=== PATIENT | male | born 1955 | race African-American/Black ===

== ENCOUNTER 2017-03-04 23:36 | Inpatient (IN) | payer MEDICARE ==
[~2017-03-04] VITALS: Ht 152.4 cm; Wt 122.5 kg
[~2017-03-04 23:36] MED LIST: ACCUPRIL10 MG; ACCUPRIL20TAB PO; AMBIEN 10MG10 MG PO; ATARAX 25MG25 MG/TAB PO; BETAPACE 120MG120 MG PO; BETAPACE 80MG80 MG PO; BETAPACE80 MG PO; CARDURA4 MG PO; CEFTIN500 MG PO; COUMADIN; COUMADIN 77.5 MG/TAB PO; COUMADIN10 MG PO; DIGOXIN0.25 MG PO; FLOMAX0.4 MG PO; FLONASE NASAL S16 GM NS; GABAPENTIN600 MG PO; GLUCOPHAGE500 MG/TAB PO; HUMALIN SC; HUMULIN 70/3100 U/ML SC; HYDRALAZINE HCL25 MG PO; INSULIN 70/3100 U/ML IJ; LANOXIN0.25 MG PO; LANTUS INSULIN; LASIX 20MG TABL20 MG PO; LEXAPRO20 MG PO; LORTAB 10/500 51 TAB; LOVENOX120 MG/0.8 SC; NEB; NEURONTIN600 MG/TAB PO; NEXIUM 40MG40 MG PO; NEXIUM40 MG PO; NORCO 325 MG-7.1 TAB PO; NORVASC 10MG10 MG PO; NOVOLIN 70/30 IN3 ML SC; TOPROL XL100 MG PO; TOPROL XL50 MG PO; TRAMADOL50 MG PO; VICODIN 5/5001 UDTAB PO; XANAX0.25 MG PO; ZOCOR 20MG20 MG PO; amiodipine
[2017-03-05 00:30] LABS: BASO % 0.5 % (0.0-2.0); EOS # 0.2 (0.0-0.7); EOS % 2.6 % (0-4.0); GRAN # 3.9 (1.4-6.5); GRAN % 58.2 % (42.2-75.2); LYMPH % 29.7 % (20.0-51.0); MEAN CELL VOLUME 88 fl (80.0-100.0); MEAN CORPUSCULAR HGB CONC 32 g/dl (33.0-37.0); MEAN PLATELET VOLUME 9.2 fl (7.4-10.4); MONO # 0.6 (0.1-0.6); MONO % 8.4 % (1.7-9.3); PLATELET COUNT 190 K/mm3 (130-400); RED BLOOD COUNT 3.27 M/mm3 (4.20-5.60); WHITE BLOOD COUNT 6.6 K/mm3 (4.8-10.8)
[2017-03-05 00:31] LABS: HEMATOCRIT 28.6 % (42.0-52.0); HEMOGLOBIN 9.1 g/dl (13.5-18.0); MEAN CORPUSCULAR HEMOGLOBIN 28 pg (27.0-31.0)
[2017-03-05 00:34] LABS: INR 3.3 (0.8-3.0)
[2017-03-05 00:43] LABS: ADJUSTED CALCIUM 8.7 mg/dL (8.4-10.2); ALBUMIN 3.8 gm/dL (3.5-5.0); BILIRUBIN,TOTAL 0.5 mg/dL (0.0-1.0); CALCIUM 8.5 mg/dL (8.4-10.2); CREATININE, serum 1.03 mg/dL (0.66-1.25); POTASSIUM 3.5 mmol/L (3.4-5.0); TOTAL PROTEIN 6.6 gm/dL (6.4-8.2)
[2017-03-05 00:55] LABS: TROPONIN-I 0.019 ng/mL (0.000-0.034)
[2017-03-05] MEDS ORDERED: CORDARONE200 MG/TAB PO (06:11)
[2017-03-05] MEDS ORDERED: TOPROL XL 50MG50 MG PO (06:12)
[2017-03-05] MEDS ORDERED: LOPRESSOR 550 MG/TAB PO (06:40)
[2017-03-05] MEDS ORDERED: NEURONTIN600 MG/TAB PO (06:43)
[2017-03-05] MEDS ORDERED: LASIX 40MG TABL40 MG PO (06:45)
[2017-03-05] MEDS ORDERED: GLUCOPHAGE1000 MG PO (06:46)
[2017-03-05] MEDS ORDERED: APRESOLINE50 MG PO (06:47)
[2017-03-05] MEDS ORDERED: COZAAR100 MG PO (06:48)
[2017-03-05] MEDS ORDERED: PERCOCET 325 MG1 TAB PO (06:51)
[2017-03-05] MEDS ORDERED: DESYREL 100MG100 MG PO (06:52)
[2017-03-05] MEDS ORDERED: COUMADIN 1010 MG/TAB PO (06:53)
[2017-03-05] MEDS ORDERED: TYLENOL 8 HR PO (06:54)
[2017-03-05] MEDS ORDERED: COUMADIN 5MG5 MG/TAB PO (06:54)
[2017-03-05] MEDS ORDERED: NITROSTAT0.4 MG/TAB SL (06:55)
[2017-03-05 07:45] VITALS: BP 145/76; PULSE 83; TEMP 97.9
[2017-03-05 07:48] VITALS: BP 145/76; PULSE 80; TEMP 97.9
[2017-03-05 09:25] LABS: BASO % 0.5 % (0.0-2.0); EOS # 0.2 (0.0-0.7); GRAN # 3.5 (1.4-6.5); GRAN % 57.4 % (42.2-75.2); LYMPH # 1.8 (1.2-3.4); LYMPH % 29.7 % (20.0-51.0); MEAN CELL VOLUME 87 fl (80.0-100.0); MEAN CORPUSCULAR HGB CONC 32 g/dl (33.0-37.0); MONO # 0.6 (0.1-0.6); MONO % 9.1 % (1.7-9.3); PLATELET COUNT 220 K/mm3 (130-400); RED BLOOD COUNT 3.73 M/mm3 (4.20-5.60)
[2017-03-05 09:26] LABS: CHOLESTEROL RISK RATIO 3.1; MAGNESIUM 1.6 mg/dL (1.6-2.3)
[2017-03-05 09:30] LABS: HEMATOCRIT 32.6 % (42.0-52.0); HEMOGLOBIN 10.3 g/dl (13.5-18.0); MEAN CORPUSCULAR HEMOGLOBIN 28 pg (27.0-31.0)
[2017-03-05 09:34] LABS: CREATININE, serum 1.09 mg/dL (0.66-1.25); POTASSIUM 3.9 mmol/L (3.4-5.0)
[2017-03-05 12:19] VITALS: BP 144/91; PULSE 79; TEMP 98.7
[2017-03-05 15:44] VITALS: BP 163/87; PULSE 95; TEMP 98.8
[2017-03-05 19:37] VITALS: BP 167/96; PULSE 80; TEMP 98.5
[2017-03-05 23:08] VITALS: BP 127/74; PULSE 79; TEMP 98.6
[2017-03-06 05:07] VITALS: BP 152/65; PULSE 64; TEMP 98.1
[2017-03-06 06:20] LABS: BASO % 0.5 % (0.0-2.0); EOS # 0.2 (0.0-0.7); GRAN # 3.4 (1.4-6.5); LYMPH # 1.4 (1.2-3.4); LYMPH % 25.5 % (20.0-51.0); MEAN CELL VOLUME 88 fl (80.0-100.0); MEAN CORPUSCULAR HGB CONC 31 g/dl (33.0-37.0); MEAN PLATELET VOLUME 9.2 fl (7.4-10.4); MONO # 0.5 (0.1-0.6); MONO % 9.6 % (1.7-9.3); PLATELET COUNT 218 K/mm3 (130-400); RED BLOOD COUNT 3.63 M/mm3 (4.20-5.60); WHITE BLOOD COUNT 5.6 K/mm3 (4.8-10.8)
[2017-03-06 06:25] LABS: MEAN CORPUSCULAR HEMOGLOBIN 28 pg (27.0-31.0)
[2017-03-06 06:38] LABS: ADJUSTED CALCIUM 8.6 mg/dL (8.4-10.2); ALBUMIN 4.1 gm/dL (3.5-5.0); BILIRUBIN,TOTAL 0.7 mg/dL (0.0-1.0); CALCIUM 8.7 mg/dL (8.4-10.2); CREATININE, serum 1.07 mg/dL (0.66-1.25); POTASSIUM 3.9 mmol/L (3.4-5.0); TOTAL PROTEIN 7.3 gm/dL (6.4-8.2)
[2017-03-06 06:41] LABS: INR 3.1 (0.8-3.0); PROTHROMBIN TIME 36.3 SECONDS (9.7-12.8)
[2017-03-06 07:46] VITALS: BP 151/88; PULSE 81; TEMP 98.1
[2017-03-06 11:32] VITALS: BP 148/90; PULSE 78; TEMP 98.1
[2017-03-06 15:41] VITALS: BP 142/80; PULSE 82; TEMP 98.9
[2017-03-06 19:53] VITALS: BP 147/77; PULSE 80; TEMP 98.2
[2017-03-06 23:00] VITALS: BP 147/70; PULSE 90; TEMP 98.4
[2017-03-07 03:58] VITALS: BP 124/67; PULSE 79; TEMP 98.3
[2017-03-07 07:08] LABS: BASO % 0.5 % (0.0-2.0); EOS # 0.2 (0.0-0.7); EOS % 2.9 % (0-4.0); GRAN # 3.3 (1.4-6.5); GRAN % 55.1 % (42.2-75.2); LYMPH # 1.9 (1.2-3.4); MEAN CELL VOLUME 87 fl (80.0-100.0); MEAN CORPUSCULAR HGB CONC 32 g/dl (33.0-37.0); MEAN PLATELET VOLUME 9.7 fl (7.4-10.4); MONO # 0.6 (0.1-0.6); MONO % 9.3 % (1.7-9.3); PLATELET COUNT 252 K/mm3 (130-400); RED BLOOD COUNT 3.78 M/mm3 (4.20-5.60); WHITE BLOOD COUNT 5.9 K/mm3 (4.8-10.8)
[2017-03-07 07:13] LABS: HEMOGLOBIN 10.4 g/dl (13.5-18.0); MEAN CORPUSCULAR HEMOGLOBIN 28 pg (27.0-31.0)
[2017-03-07 07:17] LABS: CALCIUM 9.1 mg/dL (8.4-10.2); CREATININE, serum 1.17 mg/dL (0.66-1.25); MAGNESIUM 1.7 mg/dL (1.6-2.3); PHOSPHOROUS 3.4 mg/dL (2.5-4.5); POTASSIUM 3.8 mmol/L (3.4-5.0)
[2017-03-07 07:19] LABS: PROTHROMBIN TIME 38.4 SECONDS (9.7-12.8)
[2017-03-07 07:20] LABS: INR 3.3 (0.8-3.0)
[2017-03-07 07:54] VITALS: BP 122/76; PULSE 81; TEMP 98.4
[2017-03-07 11:34] VITALS: BP 115/67; PULSE 79; TEMP 98.5
[2017-03-07 15:39] VITALS: BP 148/76; PULSE 79; TEMP 98.2
[2017-03-07 19:20] VITALS: BP 147/88; PULSE 80; TEMP 98.2
[2017-03-07 23:18] VITALS: BP 138/81; PULSE 79; TEMP 98.2
[2017-03-08] VITALS (7 sets, daily range): BP systolic 117–138; BP diastolic 58–85; PULSE 78–82; TEMP 97.6–98
[2017-03-08 09:20] LABS: BASO % 0.6 % (0.0-2.0); EOS # 0.2 (0.0-0.7); EOS % 4.2 % (0-4.0); GRAN # 2.9 (1.4-6.5); GRAN % 56.2 % (42.2-75.2); LYMPH # 1.4 (1.2-3.4); LYMPH % 28.5 % (20.0-51.0); MEAN CELL VOLUME 86 fl (80.0-100.0); MEAN CORPUSCULAR HGB CONC 32 g/dl (33.0-37.0); MEAN PLATELET VOLUME 9.8 fl (7.4-10.4); MONO # 0.5 (0.1-0.6); MONO % 10.3 % (1.7-9.3); PLATELET COUNT 265 K/mm3 (130-400); RED BLOOD COUNT 4.15 M/mm3 (4.20-5.60); WHITE BLOOD COUNT 5.1 K/mm3 (4.8-10.8)
[2017-03-08 09:23] LABS: HEMATOCRIT 35.7 % (42.0-52.0); HEMOGLOBIN 11.4 g/dl (13.5-18.0); MEAN CORPUSCULAR HEMOGLOBIN 27 pg (27.0-31.0)
[2017-03-08 09:32] LABS: CALCIUM 9.3 mg/dL (8.4-10.2); CREATININE, serum 1.16 mg/dL (0.66-1.25); MAGNESIUM 2.1 mg/dL (1.6-2.3); PHOSPHOROUS 2.9 mg/dL (2.5-4.5)
[2017-03-08] MEDS ORDERED: ZITHROMAX 250M250 MG PO (15:16)
[2017-03-08] MEDS ORDERED: TOPROL XL 50MG50 MG PO (15:21)
== END 2017-03-08 16:47 | disposition home or self-care (01) | DRG 314 ==
LOC: COL.ER 23:36 → MEDICAL 03-05 06:02
PROVIDERS: Emergency Medicine; Internal Medicine; Nurse Practitioner Family
DX: I27.20 Pulmonary hypertension, unspecified (principal); J18.9 Pneumonia, unspecified organism; R04.2 Hemoptysis; I48.92 Unspecified atrial flutter; I50.30 Unspecified diastolic (congestive) heart failure; I11.0 Hypertensive heart disease with heart failure; I48.0 Paroxysmal atrial fibrillation; I51.3 Intracardiac thrombosis, not elsewhere classified; E11.40 Type 2 diabetes mellitus with diabetic neuropathy, unspecified; J44.9 Chronic obstructive pulmonary disease, unspecified; E78.5 Hyperlipidemia, unspecified; R07.9 Chest pain, unspecified; G47.30 Sleep apnea, unspecified; Z87.891 Personal history of nicotine dependence; Z95.1 Presence of aortocoronary bypass graft; Z86.73 Personal history of transient ischemic attack (TIA), and cerebral infarction without residual deficits; Z79.84 Long term (current) use of oral hypoglycemic drugs; Z95.2 Presence of prosthetic heart valve; Z79.01 Long term (current) use of anticoagulants
CPT/HCPCS: 99222-AI; 99232-AI; 99239; A9502; J2270; J2405; J2785

== ENCOUNTER 2017-08-13 10:31 | Inpatient (IN) | payer MEDICARE ==
[~2017-08-13] VITALS: Ht 180.3 cm; Wt 128.9 kg
[2017-08-13] VITALS (275 sets, daily range): BP systolic 118–136; BP diastolic 72–93; PULSE 76–93; TEMP 97–97.3; O2SAT 85–100
[~2017-08-13 10:31] MED LIST changes: +APRESOLINE50 MG PO; +CORDARONE200 MG/TAB PO; +COUMADIN 1010 MG/TAB PO; +COUMADIN 5MG5 MG/TAB PO; +COZAAR100 MG PO; +DESYREL 100MG100 MG PO; +GLUCOPHAGE1000 MG PO; +LASIX 40MG TABL40 MG PO; +LOPRESSOR 550 MG/TAB PO; +NITROSTAT0.4 MG/TAB SL; +PERCOCET 325 MG1 TAB PO; +TOPROL XL 50MG50 MG PO; +TYLENOL 8 HR PO; +ZITHROMAX 250M250 MG PO
[2017-08-13 11:01] LABS: BASO % 0.2 % (0.0-2.0); EOS # 0.1 (0.0-0.7); EOS % 0.6 % (0-4.0); GRAN # 5.7 (1.4-6.5); GRAN % 70.4 % (42.2-75.2); HEMOGLOBIN 13.4 g/dl (13.5-18.0); LYMPH # 1.7 (1.2-3.4); LYMPH % 21.3 % (20.0-51.0); MEAN CELL VOLUME 86 fl (80.0-100.0); MEAN CORPUSCULAR HEMOGLOBIN 29 pg (27.0-31.0); MEAN CORPUSCULAR HGB CONC 34 g/dl (33.0-37.0); MEAN PLATELET VOLUME 9.1 fl (7.4-10.4); MONO # 0.6 (0.1-0.6); MONO % 7.1 % (1.7-9.3); PLATELET COUNT 197 K/mm3 (130-400); RED BLOOD COUNT 4.68 M/mm3 (4.20-5.60)
[2017-08-13 11:08] LABS: INR 2.7 (0.8-3.0); PROTHROMBIN TIME 32.5 SECONDS (9.7-12.8)
[2017-08-13 11:10] LABS: PARTIAL THROMBOPLASTIN TIME 45.2 SECONDS (26.0-37.0)
[2017-08-13 11:16] LABS: ALBUMIN 4.5 gm/dL (3.5-5.0); BILIRUBIN,TOTAL 0.7 mg/dL (0.0-1.0); CALCIUM 9.3 mg/dL (8.4-10.2); CREATININE, serum 1.19 mg/dL (0.66-1.25); POTASSIUM 4.4 mmol/L (3.4-5.0); TOTAL PROTEIN 9.1 gm/dL (6.4-8.2)
[2017-08-13 11:22] LABS: TROPONIN-I 0.016 ng/mL (0.000-0.034)
[2017-08-13] MEDS ORDERED: COUMADIN 77.5 MG/TAB PO (13:38)
[2017-08-13] MEDS ORDERED: INSULIN 70/3100 U/ML SQ (13:40)
[2017-08-13] MEDS ORDERED: DUTOPROL 12.5 M1 TE1 PO (14:12)
[2017-08-13] MEDS ORDERED: NORVASC 5MG5 MG/TAB PO (14:14)
[2017-08-13] MEDS ORDERED: CORDARONE200 MG/TAB PO (14:16)
[2017-08-14] MEDS ORDERED: AMBIEN 10MG10 MG (00:16)
[2017-08-14 03:47] VITALS: BP 155/87; PULSE 140
[2017-08-14 07:41] VITALS: BP 147/103; PULSE 81; TEMP 98.2
[2017-08-14] MEDS ORDERED: JARDIANCE10 (08:46)
[2017-08-14] MEDS ORDERED: DESYREL 50MG50 MG PO (08:51)
[2017-08-14 12:50] VITALS: BP 139/68; PULSE 53; TEMP 97.8
[2017-08-14 16:53] VITALS: BP 166/79; PULSE 52; TEMP 98.6
[2017-08-14 19:24] VITALS: BP 159/75; PULSE 52; TEMP 98.3
[2017-08-14 23:22] VITALS: BP 167/67; PULSE 61; TEMP 98
[2017-08-15 03:19] VITALS: BP 120/87; PULSE 64; TEMP 98.6
[2017-08-15 07:20] LABS: BASO % 0.3 % (0.0-2.0); EOS # 0.1 (0.0-0.7); EOS % 1.9 % (0-4.0); GRAN # 4.3 (1.4-6.5); GRAN % 62.8 % (42.2-75.2); HEMATOCRIT 37.2 % (42.0-52.0); HEMOGLOBIN 12.1 g/dl (13.5-18.0); LYMPH # 1.9 (1.2-3.4); LYMPH % 27.1 % (20.0-51.0); MEAN CELL VOLUME 89 fl (80.0-100.0); MEAN CORPUSCULAR HEMOGLOBIN 29 pg (27.0-31.0); MEAN CORPUSCULAR HGB CONC 33 g/dl (33.0-37.0); MEAN PLATELET VOLUME 9.5 fl (7.4-10.4); MONO # 0.5 (0.1-0.6); MONO % 7.6 % (1.7-9.3); PLATELET COUNT 196 K/mm3 (130-400); RED BLOOD COUNT 4.19 M/mm3 (4.20-5.60); REDCELL DISTRIBUTION WIDTH-CV 18.3 % (11.5-14.5)
[2017-08-15 07:26] LABS: INR 2.1 (0.8-3.0); PROTHROMBIN TIME 24.5 SECONDS (9.7-12.8)
[2017-08-15 07:47] LABS: CALCIUM 8.3 mg/dL (8.4-10.2); CREATININE, serum 1.05 mg/dL (0.66-1.25)
[2017-08-15 07:50] VITALS: BP 168/101; PULSE 70; TEMP 98.2
[2017-08-15 07:55] LABS: POTASSIUM 4.4 mmol/L (3.4-5.0)
[2017-08-15] MEDS ORDERED: AMOXICILLIN 8751 TAB PO (08:53)
[2017-08-15] MEDS ORDERED: PERCOCET 325 MG1 TAB PO (08:53)
== END 2017-08-15 11:46 | disposition home or self-care (01) | DRG 309 ==
LOC: COL.ER 10:31 → ICU 12:44 → MEDICAL 20:56
PROVIDERS: Emergency Medicine; Internal Medicine Pulmonary Disease
DX: I48.91 Unspecified atrial fibrillation (principal); I50.22 Chronic systolic (congestive) heart failure; J02.0 Streptococcal pharyngitis; B95.0 Streptococcus, group A, as the cause of diseases classified elsewhere; E11.9 Type 2 diabetes mellitus without complications; I11.0 Hypertensive heart disease with heart failure; Z95.1 Presence of aortocoronary bypass graft; Z79.01 Long term (current) use of anticoagulants; Z95.2 Presence of prosthetic heart valve; Z87.891 Personal history of nicotine dependence
CPT/HCPCS: 99223-AI; 99232-AI; 99238; J0282; J0456; J0696; J1815; J7030; J7050

== ENCOUNTER → 2018-08-12 | Outpatient (CLI) | payer MEDICARE, MEDICAID ==
[~2018-08-12] MED LIST changes: +AMOXICILLIN 8751 TAB PO; +ANTIVERT 25MG25 MG PO; +COUMADIN 6MG6 MG/TAB PO; +DESYREL 50MG50 MG PO; +DUTOPROL 12.5 M1 TE1 PO; +INSULIN 70/3100 U/ML SQ; +JARDIANCE10; +LOVENOX120 MG/0.8 SQ; +NORVASC 5MG5 MG/TAB PO
== END ==
LOC: COL.VAS 08:35
DX: I08.3 Combined rheumatic disorders of mitral, aortic and tricuspid valves (principal); I27.20 Pulmonary hypertension, unspecified; Z95.4 Presence of other heart-valve replacement

== ENCOUNTER 2018-10-22 10:05 | Inpatient (IN) | payer MEDICARE, MEDICAID ==
[~2018-10-22] VITALS: Ht 180.3 cm; Wt 105.7 kg
[2018-10-22 11:00] LABS: COLLECTION METHOD CLEAN CATCH
[2018-10-22 11:18] LABS: MUCOUS Present /lpf; PH 5 (5-8); SQUAMOUS EPITHELIAL None Seen /hpf; URINE APPEARANCE Hazy; URINE BACTERIA None Seen /hpf; URINE BILIRUBIN Negative (NEGATIVE); URINE BLOOD Negative (NEGATIVE); URINE COLOR Yellow; URINE GLUCOSE 3+ (NEGATIVE); URINE KETONE 1+ (NEGATIVE); URINE LEUKOCYTE ESTERASE Negative (NEGATIVE); URINE NITRATE Negative (NEGATIVE); URINE PROTEIN(semi-quant) Negative (NEGATIVE); URINE RBC 0-2 /hpf; URINE UROBILINOGEN Negative (NEGATIVE)
[2018-10-22 11:47] LABS: BASO % 0.4 % (0.0-2.0); EOS # 0.1 (0.0-0.7); EOS % 1.2 % (0-4.0); GRAN # 2.5 (1.4-6.5); GRAN % 52.7 % (42.2-75.2); HEMATOCRIT 40.9 % (42.0-52.0); HEMOGLOBIN 13.9 g/dl (13.5-18.0); LYMPH # 1.7 (1.2-3.4); LYMPH % 34.5 % (20.0-51.0); MEAN CELL VOLUME 82 fl (80.0-100.0); MEAN CORPUSCULAR HEMOGLOBIN 28 pg (27.0-31.0); MEAN CORPUSCULAR HGB CONC 34 g/dl (33.0-37.0); MONO # 0.5 (0.1-0.6); PLATELET COUNT 174 K/mm3 (130-400); RED BLOOD COUNT 5.02 M/mm3 (4.20-5.60); REDCELL DISTRIBUTION WIDTH-CV 21.3 % (11.5-14.5)
[2018-10-22 11:49] LABS: INR 2.6 (0.8-3.0); PROTHROMBIN TIME 31.5 SECONDS (9.7-12.8)
[2018-10-22 11:55] LABS: ALBUMIN 4.2 gm/dL (3.5-5.0); BILIRUBIN,TOTAL 0.7 mg/dL (0.0-1.0); C-REACTIVE PROTEIN 0.7 mg/dL (0.0-0.9); CALCIUM 9.4 mg/dL (8.4-10.2); CREATININE, serum 1.47 (0.66-1.25); POTASSIUM 3.1 mmol/L (3.4-5.0); TOTAL PROTEIN 8.1 gm/dL (6.4-8.2)
[2018-10-22 12:07] LABS: TROPONIN-I 0.04 ng/mL (0.000-0.035)
[2018-10-22 15:59] LABS: MAGNESIUM 2.2 mg/dL (1.6-2.3)
[2018-10-22 16:19] LABS: TROPONIN-I 3 HR POST INITIAL 0.046 ng/mL (0.000-0.034)
[2018-10-22 16:24] VITALS: BP 152/86; PULSE 71; TEMP 97.8
[2018-10-22] MEDS ORDERED: PRILOSEC 20MG20 MG PO (16:34)
[2018-10-22] MEDS ORDERED: FLONASE SENSIM9.9 ML NS (16:35)
[2018-10-22] MEDS ORDERED: NIFEREX TABLET1 EACH PO (16:35)
[2018-10-22] MEDS ORDERED: NITRO-DUR0.2 MG/PAT TD (16:37)
[2018-10-22] MEDS ORDERED: TOPROL XL100 MG PO (16:38)
[2018-10-22] MEDS ORDERED: CELEXA 20MG20 MG/TAB PO (16:39)
[2018-10-22] MEDS ORDERED: JARDIANCE10 PO (16:40)
[2018-10-22] MEDS ORDERED: MICARDIS80 MG PO (16:41)
--- NOTE | 2018-10-22 17:00 | NUR ---
Pt arrived to floor at this time via w/c with ER staff. Will orient to room.
--- NOTE | 2018-10-22 18:18 | NUR ---
Pt resting in bed, down for radiology Xray. PRN pain meds provided for ABD pain of 5/10. Pt states he has no support, no friends, no family, has lost most of his loved ones and feels alone. Will pass onto nightshift for social work to meet with him tomorrow. Will give bedside shift report to nightshift nurse who will resume care.
--- NOTE | 2018-10-22 19:18 | NUR ---
Report received from Mary YING. Pt resting in bed. PRN pain meds given by Mary.
--- NOTE | 2018-10-22 19:30 | NUR ---
Radiology at bedside to complete abdominal ultrasound.
[2018-10-22 20:36] VITALS: BP 179/88; PULSE 70; TEMP 98
--- NOTE | 2018-10-22 21:00 | NUR ---
Donna DHALIWAL alerted that patients blood pressure is elevated. Orders received for PRN Hydralazine.
--- NOTE | 2018-10-22 21:05 | NUR ---
Pt resting in bed. No acute distress noted. Pt c/o cramping pain 8/10 in RUQ. Pain radiates to epigastric area. Pt also c/o headache that he relates to elevated blood pressure. R side abdomen tender. BS+. Respirations even and unlabored. Lungs clear. PRN and scheduled meds administered. IV fluids and K+ replacement running concurrently to RAC IV site. Will continue to monitor.
[2018-10-22 22:30] VITALS: BP 154/86; PULSE 72
--- NOTE | 2018-10-22 22:30 | NUR ---
Pts blood pressure responsive to PRN Hydralzine. No needs noted.
--- NOTE | 2018-10-22 23:20 | NUR ---
Pt resting in bed. CPAP in place. Pt c/o L chest pain. PRN Nitroglycerin tablet x1 given. Will continue to monitor.
[2018-10-22 23:26] VITALS: BP 155/74; PULSE 69; TEMP 97.9
[2018-10-22 23:28] VITALS: BP 155/74
--- NOTE | 2018-10-22 23:45 | NUR ---
L sided chest pain has resolved with Nitro SL x1, but patient states RUQ is painful 7/10-cramping. PRN pain medications administered. Pt has not voided since admission at 1425. He also reported no output in the ER since 1000. Pt bladder scanned at 230 mL. Chrissy DHALIWAL alerted. No orders.
[2018-10-23] VITALS (7 sets, daily range): BP systolic 146–179; BP diastolic 81–101; PULSE 78–91; TEMP 97.9–98.4
--- NOTE | 2018-10-23 06:11 | NUR ---
Pt is sleeping this AM after being up throughout the shift. Pt has not c/o pain since last dose of PRN pain medication at at 2330. Potassium replacement completed and pt IVF running to RAC IV. Recheck this AM.
[2018-10-23 07:20] LABS: BASO % 0.8 % (0.0-2.0); EOS # 0.2 (0.0-0.7); GRAN # 2.7 (1.4-6.5); GRAN % 54.9 % (42.2-75.2); HEMATOCRIT 41.9 % (42.0-52.0); HEMOGLOBIN 13.7 g/dl (13.5-18.0); LYMPH # 1.5 (1.2-3.4); MEAN CELL VOLUME 84 fl (80.0-100.0); MEAN CORPUSCULAR HEMOGLOBIN 28 pg (27.0-31.0); MEAN CORPUSCULAR HGB CONC 33 g/dl (33.0-37.0); MEAN PLATELET VOLUME 9.2 fl (7.4-10.4); MONO # 0.6 (0.1-0.6); MONO % 11.1 % (1.7-9.3); PLATELET COUNT 192 K/mm3 (130-400); RED BLOOD COUNT 4.97 M/mm3 (4.20-5.60); REDCELL DISTRIBUTION WIDTH-CV 21.4 % (11.5-14.5)
[2018-10-23 07:44] LABS: ALBUMIN 4.2 gm/dL (3.5-5.0); BILIRUBIN,TOTAL 0.6 mg/dL (0.0-1.0); CALCIUM 9.2 mg/dL (8.4-10.2); CHOLESTEROL RISK RATIO 4.4; CREATININE, serum 1.23 (0.66-1.25); POTASSIUM 4.4 mmol/L (3.4-5.0); TOTAL PROTEIN 8.2 gm/dL (6.4-8.2)
[2018-10-23 08:09] LABS: TROPONIN-I 0.037 ng/mL (0.000-0.035)
--- NOTE | 2018-10-23 10:52 | NUR ---
Patient lives at home alone in [place], [place] and plans to return home upon discharge. Patient receives support as needed from his friend, Mellissa Ferreira [phone], or his son, Kiran Rodney. Patient uses a walker and/or cane for mobility assistance as needed, his primary care physician is Dr. Boo Hinojosa ([place]), his pharmacy is [facility] ([place]), and he does not have advance directives for healthcare completed at this time. No further needs and social worker masters will follow as needed.
--- NOTE | 2018-10-23 20:55 | NUR ---
Shift assessment complete. Pt sitting in bed, awake, a&o, cooperative c cares. Pt continued c/o nausea et abd pain; PRN pain physician general internal medicine c hs meds per pt req. Pt denies other c/o. IV patent. Pt denies further needs. Report given to Esperanza YING to assume pt cares.
[2018-10-24] VITALS (8 sets, daily range): BP systolic 127–200; BP diastolic 64–106; PULSE 80–96; TEMP 98.1–98.5
[2018-10-24 07:25] LABS: HEMOGLOBIN 13.4 g/dl (13.5-18.0); MEAN CELL VOLUME 83 fl (80.0-100.0); MEAN CORPUSCULAR HEMOGLOBIN 28 pg (27.0-31.0); MEAN CORPUSCULAR HGB CONC 34 g/dl (33.0-37.0); MEAN PLATELET VOLUME 8.7 fl (7.4-10.4); PLATELET COUNT 168 K/mm3 (130-400); RED BLOOD COUNT 4.83 M/mm3 (4.20-5.60); REDCELL DISTRIBUTION WIDTH-CV 21.2 % (11.5-14.5)
[2018-10-24 07:41] LABS: INR 4.9 (0.8-3.0)
[2018-10-24 07:58] LABS: CALCIUM 9.1 mg/dL (8.4-10.2); CREATININE, serum 0.88 (0.66-1.25); POTASSIUM 3.7 mmol/L (3.4-5.0)
--- NOTE | 2018-10-24 08:00 | NUR ---
PATIENT IS A&O. PATIENT UPSET ABOUT BEING A FALL RISK AND DOESN'T LIKE CALLING FOR HELP. NURSING EDUCATED ABOUT SAFETY. PATIENT ALSO HAD SEVERAL QUESTIONS ABOUT HOME MEDS SUCH WHY HIS NEURONTIN DOSE WAS DECREASED, LIKELY DUE TO HIS BUN & CREAT LABS. PATIENT ALSO WANTING HIS NASAL SPRAY RE-ORDERED. HOSPITALIST NOTIFIED. PATIENT DENIES CHEST PAIN OR SOB. PATIENT DOES GET FATIGUED WITH ACTIVITY. PT ORDERED. PATIENT SCHEDULED FOR A LEXISCAN THIS AM. NPO. TELE INPLACE. AM MEDS GIVEN. TOPROLOL HELD FOR STEPHANIE. HEAD TO TOE ASSESSMENT COMPLETE. PATIENT RESTING UP IN BED WITH CALL LIGHT IN REACH.
[2018-10-24 08:10] LABS: BASOPHIL 1 % (0-2); EOSINOPHIL 3 % (0-4); LYMPHOCYTE 41 % (20.0-51.0); NEUTROPHILS 49 % (42.0-75.2); PLATELET ESTIMATE NORMAL (NORMAL)
--- NOTE | 2018-10-24 13:15 | NUR ---
PT AT BEDSIDE TO WORK WITH PATIENT. PATIENT FOUND PUTTING ON HIS STREET CLOTHES AND HAD TAKEN OFF HIS IV FLUIDS. PT ENCOURAGED PATIENT TO PUT BACK ON HIS GOWN, PATIENT REFUSED.
--- NOTE | 2018-10-24 13:30 | NUR ---
PATIENT HIGH FALL RISK AND REFUSING TO PUT ON [facility] GOWN. STAFF EXPLAINED HOSPITAL POLICY REGUARDING SAFETY. PATIENT ALSO REFUSING TO HAVE CHAIR OR BED ALARM. PATIENT WONT CALL USING CALL LIGHT FOR ACTIVITY AFTER BEING EDUCATED AND ASKED TO CALL FOR HELP. PATIENT'S ROOM RIGHT ACCROSS FROM THE NURSES STATION. PATIENT SEEN AMBULATING IN ROOM WITHOUT CALLING FOR HELP. PREVIOUS SHIFT REPORTS PATIENT FELL TWICE YESTERDAY DUE TO NON-COMPLIENCE. PATIENT HAS A LONG LIST OF ISSUES HE COMPLAINS ABOUT FROM HIS FALL RISKS STATUS TO HIS DIET. PATIENT VERY HARD TO PLEASE. NURSING STAFF SPENT A LOT OF TIME EDUCATING PATIENT AND ANSWERING QUESTIONS. PATIENT REMAINS NON-COMPLIENT.
--- NOTE | 2018-10-24 13:40 | NUR ---
PATIENT SEEN OUT IN HALLWAY BLEEDING FROM HIS RIGHT HAND. PATIENT TOOK OF HIS FLUIDS AND PULLED OUT HIS RIGHT HAND IV. PATIENT BLEEDING ALL OVER HIMSELF AND FLOOR. PATIENT ALSO REMOVED HIS HEART MONITOR AND WAS STOPPED IN HALLWAY BY NURSING STAFF. CALLED HOSPITALIST AND ANALOG IC DESIGN ENGINEER. Anuj
--- NOTE | 2018-10-24 13:45 | NUR ---
AT BEDSIDE EXPLAINING THE IMPORTANCE OF HOSPITAL SAFETY WELL HIS NEED FOR CONTINUED MEDICAL MANAGEMENT. THE HOSPITALIST CARE TEAM ALL EXPLAINED IN GREAT DETAIL AND ANSWERED ALL QUESTIONS/CONCERNS. PATIENT WAS OPEN ABOUT NOT FOLLOWING HOSPITAL POLICY AND STATES WE ARE JUST "AGGRAVATING HIM". PATIENT HAS CHOOSENT NOT TO STAY. PATIENT UNDERSTANDS HIS RISKS AND CLEARLY STATES HE DOESN'T CARE. HOSPITALIST ENCOURAGED HIM TO FOLLOW UP WITH HIS PCP AND GET HIS INR CHECKED. PATIENT STATED "I'M NOT GOING TO DO THAT EITHER".
--- NOTE | 2018-10-24 14:00 | NUR ---
PATIENT QUICKLY SIGNED AMA PAPER AND IS WALKING OUT AMA WITH WALKER AND PERSONAL BELONGINGS. PATIENT WOULD NOT WAIT FOR STAFF TO GET A WHEELCHAIR. SOFTWARE TEST ENGINEER WALKED OUT WITH PATIENT.
--- NOTE | 2018-10-24 14:09 | NUR ---
The patient left Against Medical Advice. No additional needs at this time.
== END 2018-10-24 14:00 | disposition left against medical advice (07) | DRG 438 ==
LOC: COL.ER 10:05 → MEDICAL 12:46
PROVIDERS: Emergency Medicine; Physician Assistant; ADMIT Hospitalist
DX: K85.90 Acute pancreatitis without necrosis or infection, unspecified (principal); I21.A1 Myocardial infarction type 2; E87.2 Acidosis; I50.32 Chronic diastolic (congestive) heart failure; I69.351 Hemiplegia and hemiparesis following cerebral infarction affecting right dominant side; K86.89 Other specified diseases of pancreas; R55 Syncope and collapse; E87.6 Hypokalemia; Z79.84 Long term (current) use of oral hypoglycemic drugs; E11.40 Type 2 diabetes mellitus with diabetic neuropathy, unspecified; Z79.4 Long term (current) use of insulin; Z79.01 Long term (current) use of anticoagulants; Z95.2 Presence of prosthetic heart valve; E78.5 Hyperlipidemia, unspecified; I11.0 Hypertensive heart disease with heart failure; I48.0 Paroxysmal atrial fibrillation; K21.9 Gastro-esophageal reflux disease without esophagitis; J44.9 Chronic obstructive pulmonary disease, unspecified; G47.33 Obstructive sleep apnea (adult) (pediatric); G47.00 Insomnia, unspecified; I35.1 Nonrheumatic aortic (valve) insufficiency; I36.1 Nonrheumatic tricuspid (valve) insufficiency; I25.10 Atherosclerotic heart disease of native coronary artery without angina pectoris; Z95.1 Presence of aortocoronary bypass graft; Z86.711 Personal history of pulmonary embolism; R59.0 Localized enlarged lymph nodes; F07.81 Postconcussional syndrome
CPT/HCPCS: OP; 99223-AI; 99231-AI; 99233-AI; 99239; A9500; J0360; J1170; J2270; J2765; J2785; J3480; J7030; Q9967

== ENCOUNTER 2018-10-26 22:35 | Emergency (ER) | payer MEDICARE, MEDICAID ==
[2006-05-04 12:29] VITALS: BP 123/72
[~2018-10-26] VITALS: Ht 180.3 cm; Wt 106.4 kg
[~2018-10-26 22:35] MED LIST changes: +CELEXA 20MG20 MG/TAB PO; +FLONASE SENSIM9.9 ML NS; +JARDIANCE10 PO; +MICARDIS80 MG PO; +NIFEREX TABLET1 EACH PO; +NITRO-DUR0.2 MG/PAT TD; +PRILOSEC 20MG20 MG PO
[2018-10-26 22:42] VITALS: TEMP 98.9
[2018-10-27 00:47] LABS: BASO % 0.5 % (0.0-2.0); EOS # 0.1 (0.0-0.7); GRAN # 3.8 (1.4-6.5); GRAN % 64.6 % (42.2-75.2); HEMATOCRIT 40.7 % (42.0-52.0); HEMOGLOBIN 13.6 g/dl (13.5-18.0); LYMPH # 1.5 (1.2-3.4); LYMPH % 25.9 % (20.0-51.0); MEAN CELL VOLUME 83 fl (80.0-100.0); MEAN CORPUSCULAR HEMOGLOBIN 28 pg (27.0-31.0); MEAN CORPUSCULAR HGB CONC 33 g/dl (33.0-37.0); MONO # 0.4 (0.1-0.6); MONO % 7.5 % (1.7-9.3); PLATELET COUNT 170 K/mm3 (130-400); RED BLOOD COUNT 4.93 M/mm3 (4.20-5.60); REDCELL DISTRIBUTION WIDTH-CV 20.7 % (11.5-14.5)
[2018-10-27 01:00] LABS: ALBUMIN 4.3 gm/dL (3.5-5.0); BILIRUBIN,TOTAL 1.2 mg/dL (0.0-1.0); CALCIUM 9.8 mg/dL (8.4-10.2); CREATININE, serum 1.53 (0.66-1.25); POTASSIUM 3.6 mmol/L (3.4-5.0); TOTAL PROTEIN 8.4 gm/dL (6.4-8.2)
[2018-10-27 09:30] VITALS: BP 125/81; PULSE 83
== END 2018-10-27 09:35 | disposition short-term general hospital (02) ==
LOC: COL.ER 22:35
PROVIDERS: Emergency Medicine
DX: K85.90 Acute pancreatitis without necrosis or infection, unspecified (principal); K86.9 Disease of pancreas, unspecified; I10 Essential (primary) hypertension; E11.42 Type 2 diabetes mellitus with diabetic polyneuropathy; I48.91 Unspecified atrial fibrillation; I25.10 Atherosclerotic heart disease of native coronary artery without angina pectoris; K21.9 Gastro-esophageal reflux disease without esophagitis; E78.5 Hyperlipidemia, unspecified; J44.9 Chronic obstructive pulmonary disease, unspecified; Z86.73 Personal history of transient ischemic attack (TIA), and cerebral infarction without residual deficits; Z79.4 Long term (current) use of insulin; Z79.84 Long term (current) use of oral hypoglycemic drugs; Z79.01 Long term (current) use of anticoagulants
CPT/HCPCS: J1170; J2405; J7030

== ENCOUNTER 2018-11-13 12:06 | Emergency (ER) | payer MEDICARE, MEDICAID ==
[2006-05-04 12:29] VITALS: BP 123/72
[~2018-11-13] VITALS: Ht 180.3 cm; Wt 104.5 kg
[~2018-11-13 12:06] MED LIST changes: -JARDIANCE10
[2018-11-13 12:13] VITALS: TEMP 97.3
[2018-11-13] MEDS ORDERED: HUMULIN 70/3100 U/M1 SQ (12:55)
[2018-11-13] MEDS ORDERED: ZOFRAN 4MG T4 MG/TAB PO (13:00)
[2018-11-13] MEDS ORDERED: ZOCOR 20MG20 MG PO (13:01)
[2018-11-13] MEDS ORDERED: MIRALAX PA17 GM/Dose PO (13:01)
[2018-11-13] MEDS ORDERED: COUMADIN 77.5 MG/TAB PO (13:03)
[2018-11-13 13:21] LABS: BASO % 0.4 % (0.0-2.0); EOS # 0.1 (0.0-0.7); EOS % 1.6 % (0-4.0); GRAN # 2.6 (1.4-6.5); GRAN % 51.2 % (42.2-75.2); LYMPH # 1.8 (1.2-3.4); LYMPH % 34.9 % (20.0-51.0); MEAN CELL VOLUME 85 fl (80.0-100.0); MEAN CORPUSCULAR HEMOGLOBIN 28 pg (27.0-31.0); MEAN CORPUSCULAR HGB CONC 33 g/dl (33.0-37.0); MEAN PLATELET VOLUME 9.3 fl (7.4-10.4); MONO # 0.6 (0.1-0.6); MONO % 11.5 % (1.7-9.3); PLATELET COUNT 226 K/mm3 (130-400); RED BLOOD COUNT 4.26 M/mm3 (4.20-5.60); REDCELL DISTRIBUTION WIDTH-CV 17.5 % (11.5-14.5)
[2018-11-13 13:24] LABS: ALANINE AMINOTRANSFERASE < 6 U/L (21-72); ALBUMIN 4.2 gm/dL (3.5-5.0); ALKALINE PHOSPHATASE 89 U/L (50-136); AMYLASE 94 U/L (30-110); ANION GAP 15 mmol/L (7-16); AST,SGOT 36 U/L (15-37); BILIRUBIN,TOTAL 0.7 mg/dL (0.0-1.0); BLOOD UREA NITROGEN 20 mg/dL (9-20); CALCIUM 9.7 mg/dL (8.4-10.2); CARBON DIOXIDE 21 mmol/L (22-30); CHLORIDE 103 mmol/L (98-107); CREATININE, serum 1.47 (0.66-1.25); GLUCOSE 160 mg/dL (74-106); LIPASE 216 U/L (23-300); POTASSIUM 3.9 mmol/L (3.4-5.0); SODIUM 139 mmol/L (137-145)
[2018-11-13 14:07] LABS: COLLECTION METHOD CLEAN CATCH
[2018-11-13 14:13] LABS: MUCOUS Present /lpf; PH 5 (5-8); SQUAMOUS EPITHELIAL None Seen /hpf; URINE APPEARANCE Clear; URINE BACTERIA None Seen /hpf; URINE BILIRUBIN Negative (NEGATIVE); URINE BLOOD 3+ (NEGATIVE); URINE COLOR Yellow; URINE GLUCOSE 3+ (NEGATIVE); URINE KETONE Negative (NEGATIVE); URINE LEUKOCYTE ESTERASE Negative (NEGATIVE); URINE NITRATE Negative (NEGATIVE); URINE PROTEIN(semi-quant) Negative (NEGATIVE); URINE RBC 20-50 /hpf; URINE UROBILINOGEN Negative (NEGATIVE)
[2018-11-13 16:57] VITALS: BP 115/74; PULSE 70
== END 2018-11-13 16:57 | disposition home or self-care (01) ==
LOC: COL.ER 12:06
PROVIDERS: Nurse Practitioner Primary Care
DX: K86.9 Disease of pancreas, unspecified (principal); E11.9 Type 2 diabetes mellitus without complications; I10 Essential (primary) hypertension; J44.9 Chronic obstructive pulmonary disease, unspecified; K21.9 Gastro-esophageal reflux disease without esophagitis; E78.5 Hyperlipidemia, unspecified; I48.91 Unspecified atrial fibrillation; Z95.1 Presence of aortocoronary bypass graft; Z87.891 Personal history of nicotine dependence; Z90.89 Acquired absence of other organs; Z86.711 Personal history of pulmonary embolism; Z79.84 Long term (current) use of oral hypoglycemic drugs; Z79.51 Long term (current) use of inhaled steroids
CPT/HCPCS: J1170; J2270; J2405; J7030

== ENCOUNTER 2018-11-21 09:40 | Observation (INO) | payer MEDICARE, MEDICAID ==
[~2018-11-21] VITALS: Ht 180.3 cm; Wt 100.8 kg
[~2018-11-21 09:40] MED LIST changes: +HUMULIN 70/3100 U/M1 SQ; +MIRALAX PA17 GM/Dose PO; +ZOFRAN 4MG T4 MG/TAB PO
[2018-11-21 11:07] LABS: COLLECTION METHOD CLEAN CATCH
[2018-11-21 11:17] LABS: BASO % 0.3 % (0.0-2.0); GRAN % 70.8 % (42.2-75.2); HEMATOCRIT 41.2 % (42.0-52.0); HEMOGLOBIN 14.2 g/dl (13.5-18.0); LYMPH # 1.5 (1.2-3.4); LYMPH % 21.5 % (20.0-51.0); MEAN CELL VOLUME 84 fl (80.0-100.0); MEAN CORPUSCULAR HEMOGLOBIN 29 pg (27.0-31.0); MEAN CORPUSCULAR HGB CONC 35 g/dl (33.0-37.0); MEAN PLATELET VOLUME 9.2 fl (7.4-10.4); MONO # 0.5 (0.1-0.6); MONO % 7.1 % (1.7-9.3); PLATELET COUNT 257 K/mm3 (130-400); RED BLOOD COUNT 4.93 M/mm3 (4.20-5.60); REDCELL DISTRIBUTION WIDTH-CV 16.2 % (11.5-14.5)
[2018-11-21 11:24] LABS: INR 4.9 (0.8-3.0)
[2018-11-21 11:26] LABS: PROTHROMBIN TIME 60.7 SECONDS (9.7-12.8)
[2018-11-21 11:27] LABS: PARTIAL THROMBOPLASTIN TIME 45.3 SECONDS (26.0-37.0)
[2018-11-21 11:29] LABS: ALANINE AMINOTRANSFERASE < 6 U/L (21-72); ALBUMIN 4.7 gm/dL (3.5-5.0); ALKALINE PHOSPHATASE 95 U/L (50-136); ANION GAP 18 mmol/L (7-16); AST,SGOT 30 U/L (15-37); BLOOD UREA NITROGEN 17 mg/dL (9-20); CALCIUM 10.2 mg/dL (8.4-10.2); CARBON DIOXIDE 21 mmol/L (22-30); CHLORIDE 101 mmol/L (98-107); CREATININE, serum 1.17 (0.66-1.25); GLUCOSE 137 mg/dL (74-106); LIPASE 162 U/L (23-300); POTASSIUM 3.9 mmol/L (3.4-5.0); SODIUM 140 mmol/L (137-145); TOTAL PROTEIN 9.1 gm/dL (6.4-8.2)
[2018-11-21 11:33] LABS: PH 6 (5-8); SQUAMOUS EPITHELIAL 0-2 /hpf; URINE APPEARANCE Clear; URINE BACTERIA None Seen /hpf; URINE BILIRUBIN Negative (NEGATIVE); URINE BLOOD 3+ (NEGATIVE); URINE COLOR Yellow; URINE GLUCOSE 3+ (NEGATIVE); URINE KETONE 2+ (NEGATIVE); URINE LEUKOCYTE ESTERASE Negative (NEGATIVE); URINE NITRATE Negative (NEGATIVE); URINE PROTEIN(semi-quant) 1+ (NEGATIVE); URINE RBC 20-50 /hpf; URINE UROBILINOGEN Negative (NEGATIVE)
[2018-11-21 11:40] LABS: TROPONIN-I 0.036 ng/mL (0.000-0.035)
[2018-11-21] MEDS ORDERED: NITRO-DUR0.2 MG/PAT TD (13:44)
[2018-11-21 16:16] VITALS: BP 131/60; PULSE 71; TEMP 98.1
--- NOTE | 2018-11-21 19:19 | NUR ---
Pt admission completed. Pt appears to be uninterested in cares, biggest concern is "pain and what he is getting for it". Pt c/o upper abdominal pain Lt and Rt. When asked questions on admission assessment, pt lingered with responses and some answers didn't match what was in computer. This nurse unsure of accuracy of responses to questions. Did not complete med rec, TEMO kam fax of meds. Hospitalist has already met with patient. Pt just lays in bed with covers over head. LH IV w/ NS. this nurse administered PRN percocet per JUN. Pt on room air and denies SOB, dizziness, chest pain, vomiting. States he has some nausea, denies needing anything for it. No other needs at this time.
[2018-11-21] MEDS ORDERED: COUMADIN 5MG5 MG/TAB PO (19:28)
[2018-11-21] MEDS ORDERED: NOVOLIN 70/30 710 ML SQ (19:34)
[2018-11-21] MEDS ORDERED: NIFEREX TABLET1 EACH PO (19:41)
[2018-11-21] MEDS ORDERED: PRILOSEC 20MG20 MG PO (19:43)
[2018-11-21] MEDS ORDERED: REGLAN 5MG T5 MG/TAB PO (19:45)
--- NOTE | 2018-11-21 19:45 | NUR ---
Patient assessed at this time. Alert and oriented. Does not alway make needs known. Bed alarm is on. Peripheral IV to right hand flushed. Site is without redness, warmth, swelling, and pain. Complained of level 8 pain to abdomen. Given PRN Morphine at this time. Also complained of nausea. Given PRN Zofran. Denies SOB, dyspnea, and cough. LS CTA. Respirations even and unlabored. HRR. Capillary refill less than 3 seconds. Non-tenting skin turgor. BSAx4. No edema noted. Voices no questions, needs, or concerns at this time. In bed watching TV at this time. Call light is within nithin.
[2018-11-21 20:17] VITALS: BP 131/79; PULSE 70; TEMP 98
[2018-11-21 23:21] VITALS: BP 120/66; PULSE 69; TEMP 97.9
--- NOTE | 2018-11-22 01:53 | NUR ---
Patient complained of pain, and was given PRN Percocet. Shortly afterwards, patient complained of nausea, and was given PRN Zofran around 0115. Patient is resting in bed with eyes closed at this time. Has voiced no other questions, needs, or concerns at this time. Call light is within reach.
[2018-11-22] MEDS ORDERED: CELEXA 20MG20 MG/TAB PO (03:29)
[2018-11-22 04:19] VITALS: BP 132/75; PULSE 70; TEMP 98
--- NOTE | 2018-11-22 06:19 | NUR ---
Patient complained of level 9 pain. Given PRN Morphine. Ambulated with cane and one assist to and from bathroom. Voices no other questions, needs, or concerns at this time. Call light is within reach.
[2018-11-22 07:09] VITALS: BP 154/85; BP 165/81; PULSE 67; TEMP 98.1
[2018-11-22 07:49] LABS: BASO % 0.6 % (0.0-2.0); EOS # 0.1 (0.0-0.7); EOS % 1.7 % (0-4.0); GRAN % 57.4 % (42.2-75.2); HEMATOCRIT 39.5 % (42.0-52.0); HEMOGLOBIN 13.1 g/dl (13.5-18.0); LYMPH # 1.6 (1.2-3.4); LYMPH % 30.6 % (20.0-51.0); MEAN CELL VOLUME 86 fl (80.0-100.0); MEAN CORPUSCULAR HEMOGLOBIN 29 pg (27.0-31.0); MEAN CORPUSCULAR HGB CONC 33 g/dl (33.0-37.0); MEAN PLATELET VOLUME 9.4 fl (7.4-10.4); MONO # 0.5 (0.1-0.6); MONO % 9.5 % (1.7-9.3); PLATELET COUNT 206 K/mm3 (130-400); RED BLOOD COUNT 4.57 M/mm3 (4.20-5.60); REDCELL DISTRIBUTION WIDTH-CV 16.7 % (11.5-14.5)
[2018-11-22 08:01] LABS: BILIRUBIN,TOTAL 0.6 mg/dL (0.0-1.0); CALCIUM 9.3 mg/dL (8.4-10.2); CREATININE, serum 1.15 (0.66-1.25); TOTAL PROTEIN 7.8 gm/dL (6.4-8.2)
[2018-11-22] MEDS ORDERED: PERCOCET 325 MG1 TAB PO (08:55)
--- NOTE | 2018-11-22 09:16 | NUR ---
MICHAEL met with the patient to discuss a discharge plan. The pt lives alone in [place]. Patient does have a daughter in but reports she is not a source of support for the pt. The pt has a walker he uses when he is dizzy and a cane that he keeps in his car. The pt's PCP is Dr. Marie and reports he also has several other providers, including a pain management doctor in [place]. The pt receives his pain and sleep medications from [facility] in and his other medications from [facility] in with no difficulties. The pt reports he utilizes [facility] for transportion to appointments if needed. The pt does not have advanced directives in the EMR and was not interested in obtaining a DPOA-HC form. The patient plans to return home upon discharge. There are no additional needs at this time.
--- NOTE | 2018-11-22 10:13 | NUR ---
Pt assessment complete and charted. Patient c/o upper abdominal pain. Per MAR and night nurse received Morphine PRN at 6am. Pt states percocet "doesn't do much". He also noted that he threw it up last night. Per report, pt had some nausea and received zofran. Pt states he doesn't have much of appetite, has not had BM. LH IV flushes well. Pt received PRN morphine prior to discharge. LH INT IV dc'd w/ no complications, catheter tip intact. Pt refused other morning medications, per pt "I can take them when I get home, I have a urban planner". He also didn't know if he would keep them down since he threw up the percocet last night. Discharge instructions reviewed, all questions answered. Pt discharged for prior scheduled appointment. Escorted out via wheelchair to car by this nurse. No other needs or questions.
== END 2018-11-22 10:18 | disposition home or self-care (01) ==
LOC: COL.ER 09:40 → MEDICAL 13:09
PROVIDERS: Physician Assistant; ADMIT Student in an Organized Health Care Education/Training Program
DX: K86.89 Other specified diseases of pancreas (principal); I25.10 Atherosclerotic heart disease of native coronary artery without angina pectoris; Z95.1 Presence of aortocoronary bypass graft; I48.91 Unspecified atrial fibrillation; Z79.01 Long term (current) use of anticoagulants; Z95.2 Presence of prosthetic heart valve; Z86.73 Personal history of transient ischemic attack (TIA), and cerebral infarction without residual deficits; I27.20 Pulmonary hypertension, unspecified; Z79.51 Long term (current) use of inhaled steroids; Z87.891 Personal history of nicotine dependence
CPT/HCPCS: G0378; J1170; J2270; J2405; J7030

== ENCOUNTER 2019-01-05 09:57 | Emergency (ER) | payer MEDICARE, MEDICAID ==
[2006-05-04 12:29] VITALS: BP 123/72
[~2019-01-05] VITALS: Ht 180.3 cm; Wt 94.1 kg
[~2019-01-05 09:57] MED LIST changes: +NOVOLIN 70/30 710 ML SQ; +REGLAN 5MG T5 MG/TAB PO
[2019-01-05 10:03] VITALS: TEMP 97.9
[2019-01-05 10:54] LABS: BASO % 0.4 % (0.0-2.0); EOS % 0.1 % (0-4.0); GRAN # 6.4 (1.4-6.5); GRAN % 76.8 % (42.2-75.2); HEMOGLOBIN 11.2 g/dl (13.5-18.0); LYMPH # 1.3 (1.2-3.4); LYMPH % 15.6 % (20.0-51.0); MEAN CELL VOLUME 88 fl (80.0-100.0); MEAN CORPUSCULAR HEMOGLOBIN 30 pg (27.0-31.0); MEAN CORPUSCULAR HGB CONC 34 g/dl (33.0-37.0); MONO # 0.5 (0.1-0.6); MONO % 6.5 % (1.7-9.3); PLATELET COUNT 286 K/mm3 (130-400); RED BLOOD COUNT 3.74 M/mm3 (4.20-5.60); REDCELL DISTRIBUTION WIDTH-CV 13.7 % (11.5-14.5)
[2019-01-05 10:56] LABS: HEMATOCRIT 32.9 % (42.0-52.0)
[2019-01-05 11:11] LABS: ALBUMIN 4.4 gm/dL (3.5-5.0); BILIRUBIN,TOTAL 1.5 mg/dL (0.0-1.0); C-REACTIVE PROTEIN 5.8 mg/dL (0.0-0.9); CALCIUM 9.7 mg/dL (8.4-10.2); CREATININE, serum 1.04 (0.66-1.25); POTASSIUM 3.7 mmol/L (3.4-5.0); TOTAL PROTEIN 8.7 gm/dL (6.4-8.2)
[2019-01-05 11:21] LABS: TROPONIN-I 0.03 ng/mL (0.000-0.035)
[2019-01-05] MEDS ORDERED: FENTANYL 25 MCG TD (14:59)
[2019-01-05 15:24] VITALS: BP 143/81; PULSE 78
== END 2019-01-05 15:36 | disposition home or self-care (01) ==
LOC: COL.ER 09:57
PROVIDERS: Emergency Medicine
DX: C25.9 Malignant neoplasm of pancreas, unspecified (principal); Z79.84 Long term (current) use of oral hypoglycemic drugs
CPT/HCPCS: J1170; J1885; J2405; J3010; J7030; Q9967

== ENCOUNTER 2019-01-22 09:59 | Inpatient (IN) | payer MEDICARE, MEDICAID ==
[~2019-01-22] VITALS: Ht 180.3 cm; Wt 93.0 kg
[~2019-01-22 09:59] MED LIST changes: +FENTANYL 25 MCG TD
[2019-01-22 10:48] LABS: HEMOGLOBIN 10.2 g/dl (13.5-18.0); MEAN CELL VOLUME 92 fl (80.0-100.0); MEAN CORPUSCULAR HEMOGLOBIN 30 pg (27.0-31.0); MEAN CORPUSCULAR HGB CONC 33 g/dl (33.0-37.0); MEAN PLATELET VOLUME 8.8 fl (7.4-10.4); PLATELET COUNT 331 K/mm3 (130-400); REDCELL DISTRIBUTION WIDTH-CV 14.6 % (11.5-14.5)
[2019-01-22 10:50] LABS: HEMATOCRIT 31.4 % (42.0-52.0)
[2019-01-22 10:53] LABS: INR 3.9 (0.8-3.0)
[2019-01-22 11:00] LABS: ALANINE AMINOTRANSFERASE 8 U/L (21-72); ALBUMIN 3.8 gm/dL (3.5-5.0); ALKALINE PHOSPHATASE 154 U/L (50-136); ANION GAP 12 mmol/L (7-16); AST,SGOT 35 U/L (15-37); BILIRUBIN,TOTAL 0.6 mg/dL (0.0-1.0); BLOOD UREA NITROGEN 13 mg/dL (9-20); C-REACTIVE PROTEIN 5.5 mg/dL (0.0-0.9); CALCIUM 9.3 mg/dL (8.4-10.2); CARBON DIOXIDE 23 mmol/L (22-30); CHLORIDE 103 mmol/L (98-107); CREATININE, serum 0.88 (0.66-1.25); GLUCOSE 167 mg/dL (74-106); LIPASE 14 U/L (23-300); POTASSIUM 3.7 mmol/L (3.4-5.0); SODIUM 138 mmol/L (137-145); TOTAL PROTEIN 7.9 gm/dL (6.4-8.2)
[2019-01-22 11:05] LABS: PROTHROMBIN TIME 47.1 SECONDS (9.7-12.8)
[2019-01-22 11:09] LABS: TROPONIN-I < 0.012 ng/mL (0.000-0.035)
[2019-01-22 11:15] LABS: BAND 2 % (0-10); LYMPHOCYTE 14 % (20.0-51.0); NEUTROPHILS 80 % (42.0-75.2); PLATELET ESTIMATE NORMAL (NORMAL)
[2019-01-22 11:22] LABS: COLLECTION METHOD CLEAN CATCH
[2019-01-22 11:28] LABS: PH 9 (5-8); SQUAMOUS EPITHELIAL None Seen /hpf; URINE APPEARANCE Clear; URINE BACTERIA None Seen /hpf; URINE BILIRUBIN Negative (NEGATIVE); URINE BLOOD Negative (NEGATIVE); URINE COLOR Yellow; URINE GLUCOSE 3+ (NEGATIVE); URINE KETONE 1+ (NEGATIVE); URINE LEUKOCYTE ESTERASE Negative (NEGATIVE); URINE NITRATE Negative (NEGATIVE); URINE PROTEIN(semi-quant) Negative (NEGATIVE); URINE RBC None Seen /hpf; URINE UROBILINOGEN Negative (NEGATIVE)
[2019-01-22 12:51] VITALS: BP 172/58; PULSE 80; TEMP 98.2
--- NOTE | 2019-01-22 13:45 | NUR ---
Pt admitted to unit from ED. Pt SOB and tachypnic upon arrival to room. Pt VS stable and pt on 3L oxygen. Updated [facility] RESIDENT PHYSICIAN on pt pain status and need for pain order. Pt then also need nausea medication. Pt had emesis x2 with little relief from PRN nausea medications given. Pt had little relief with initial dose of Morphine. Pt was sitting at side of bed when Pura and this nurse were in room with pt and pt started to have a persistant gaze and seemed to be presyncopal. Pt was layed down quickly on bed and pt soon responded to voice and followed command. VS stable. Pt was going to be transferred to ICU but then no bed available and pt continued to be treated with PRN pain medication and given 1 dose of PRN phenergan and reid placed and IV lasix and abx and solumedrol given as ordered and pt started to improve with decreased resp to 24/min and pain 8/10. Pt requested Ensure. Order received for ADA diet and NPO after midnight. Pt has call light in reach and pain and nausea managed with PRN medications.
[2019-01-22 14:17] LABS: ARTERIAL BLD GAS O2 SATURATION 97.5 % (92-100); ARTERIAL BLD GAS TCO2 CT 20.3; ARTERIAL BLOOD GAS BASE EXCESS 0.1 (-2-2); ARTERIAL BLOOD GAS HCO3 19.7 meq/L (22-26); ARTERIAL BLOOD GAS PO2 88.5 mmHg (80-100)
[2019-01-22 14:18] LABS: ARTERIAL BLOOD GAS pH 7.62 (7.35-7.45)
[2019-01-22 14:19] LABS: ARTERIAL BLOOD GAS PCO2 19.7 mmHg (35-45)
[2019-01-22 16:45] VITALS: BP 193/86; PULSE 76; TEMP 98.2
--- NOTE | 2019-01-22 18:25 | NUR ---
Med reconciliation was not very accurate as pt has medications set up for him by [facility] pharmacy in [place]. Pt was able to identify some and when taken.
[2019-01-22 19:28] VITALS: BP 165/81; PULSE 79; TEMP 98.4
--- NOTE | 2019-01-22 19:29 | NUR ---
Pt report given to Unique YING.
--- NOTE | 2019-01-22 20:30 | NUR ---
INITIAL; PT LAYING IN BED, ASSESSMENT COMPLETE. PT IN IMENSE AMOUNT OF PAIN. PT STATES HIS PAIN IS A 9 OUT OF 10, AND CAN'T GET IT UNDER CONTROL. WE WILL CONTINUE TO MONITOR HIS PAIN AND GIVE MEDICATION NEEDED. VITAL SIGNS WNL. NO OTHER CONCERNS AT THIS TIME.
[2019-01-22 23:01] VITALS: BP 148/80; PULSE 98; TEMP 98.9
[2019-01-23 04:31] VITALS: BP 130/81; PULSE 71; TEMP 98.6
--- NOTE | 2019-01-23 05:39 | NUR ---
DR. GAY OFFERED FOR PT TO CHANGE TO DILAUDID Q2H PRN HOWEVER, PT WOULD LIKE TO STAY WITH MORPHINE Q1H. HE STATES THAT HE WOULD PREFER TO HAVE THE MORPHINE WITH PERCOCET TO TAKE THE EDGE OFF. DISCUSSED A PSYCHOLOGIST PERSONNEL PUMP WITH DR. GAY, HE DIDN'T FEEL IT WAS THE RIGHT TIME FOR ONE.
[2019-01-23 06:10] LABS: GRAN # 6.8 (1.4-6.5); GRAN % 89.5 % (42.2-75.2); HEMOGLOBIN 10.2 g/dl (13.5-18.0); LYMPH # 0.5 (1.2-3.4); MEAN CELL VOLUME 91 fl (80.0-100.0); MEAN CORPUSCULAR HEMOGLOBIN 30 pg (27.0-31.0); MEAN CORPUSCULAR HGB CONC 33 g/dl (33.0-37.0); MEAN PLATELET VOLUME 8.6 fl (7.4-10.4); MONO # 0.2 (0.1-0.6); MONO % 2.4 % (1.7-9.3); PLATELET COUNT 344 K/mm3 (130-400); RED BLOOD COUNT 3.41 M/mm3 (4.20-5.60); REDCELL DISTRIBUTION WIDTH-CV 14.8 % (11.5-14.5)
[2019-01-23 06:11] LABS: HEMATOCRIT 31.1 % (42.0-52.0)
[2019-01-23 06:16] LABS: INR 2.1 (0.8-3.0); PROTHROMBIN TIME 24.6 SECONDS (9.7-12.8)
[2019-01-23 06:23] LABS: CALCIUM 9.1 mg/dL (8.4-10.2); CREATININE, serum 0.96 (0.66-1.25); MAGNESIUM 1.7 mg/dL (1.6-2.3); POTASSIUM 4.7 mmol/L (3.4-5.0)
[2019-01-23 07:39] VITALS: BP 148/79; PULSE 69; TEMP 98.2
--- NOTE | 2019-01-23 08:57 | NUR ---
Assessment completed, alert/oriented, vital signs stable, patient continue to report severe pain 8-12/27 , we are using 4mg IV morphine q1 hr and he reports this is only taking the edge of slightly, heart RRR/distal pulses are palpable, lungs dimnished/ plan for thoracentesis when INR is down/ INR 2.1 today and i josee notified who is going to speak with the radiologist, patient is NPO , denies other needs at this time, will continue to monior
--- NOTE | 2019-01-23 10:26 | NUR ---
Met with pt this morning following treatment team. His biggest problem identified is his pain management which he reports is with Dr Seaman at [facility] in [place]. She is managing his pain medications and had been using a patch (he reports lost the box of patches) and morphine pills that he took twice daily and percocet that he used for breakthrough pain. This plan got his pain to a 7/10. He is very concerned that Dr Seaman be involved in his pain management prescriptions. This information was provided to Beba RODRIGUEZ. Pt recieved Abraxane and Gemzar on 01/10--this was his first treatment. There are no plans for radiation therapy per office of Dr Maldonado and Dr Contreras's office. Pt is very tired and very discouraged but not ready to stop treatment at this time. By our records he has lost 21+ lbs in 2 months. He reports that it is hard to eat, due to SOB, feeling like he might choke, and changes in taste--he has no appetite. Discussed thoracentesis this afternoon and pt is hopeful that this will relive some of his SOB. Fan offered for comfort but pt declined.
[2019-01-23 11:25] VITALS: BP 128/73; PULSE 69; TEMP 98.1
--- NOTE | 2019-01-23 11:38 | NUR ---
Initial visit; Patient thanked Client Solutions Director for looking in on him and offering him God's blessings and to keep him in her prayers.
[2019-01-23 12:12] VITALS: BP 120/71; PULSE 70; TEMP 97.8
[2019-01-23 13:10] LABS: INR 1.7 (0.8-3.0); PROTHROMBIN TIME 19.6 SECONDS (9.7-12.8)
--- NOTE | 2019-01-23 13:18 | NUR ---
MICHAEL met with the patient to discuss discharge plan. The patient lives alone in [place]. He states that his daughter, Mellissa, lives in [facility] [facility] and that he has one other child, Kiran Murillo Jr., who lives in [facility]. He reports independence with ADLs and has a walker. He states that he does have home care services from [facility]. MICHAEL contacted and confirmed services from [place] at [facility]. Hollywood states that a he has cargiver services twice a week for four hours. The patient's PCP is Dr. Fredy Zurita and he receives his medications at [facility]. He reports no difficulties obtaining his meds. The patient does not have advanced directives completed, but he was interested in obtaining a form for DPOA-HC. MICHAEL provided. The patient has metastic pancreatic cancer. A palliative care consult was ordered. SW to continue to follow.
--- NOTE | 2019-01-23 13:30 | NUR ---
patient is going down for Ultrasound guided Thoracentesis at this time
--- NOTE | 2019-01-23 15:13 | NUR ---
PT AT PROCEDURE
--- NOTE | 2019-01-23 15:19 | NUR ---
patient arrrived back to the Medical floor from radiology s/p Thoracentesis, I have notified , I have restarted his Heparin drip
[2019-01-23 16:09] LABS: GLUCOSE,PLEURAL FLUID 190 mg/dL; TOTAL PROTEIN,PLEURAL FLUID 3.9 gm/dL
[2019-01-23 16:39] VITALS: BP 106/61; PULSE 70; TEMP 97.6
[2019-01-23] MEDS ORDERED: COUMADIN 77.5 MG/TAB PO (18:04)
--- NOTE | 2019-01-23 18:04 | NUR ---
Warfarin Initial Dosing Pharmacy Note Ordering Provider: Hemant Rodriguez MD Indication: Mechanical Mitral Valve, Atrial fibrillation LABS: INR 1.7 on 01/23/19, 3.9 on 01/22/19 Recommendation: Will restart patient's home Warfarin dose of 7.5 mg po qHS, while bridging with heparin drip. Pharmacy will closely monitor daily INR as patient INR was supratherapeutic on admission. Anticipate dose may need to decrease as INR starts to become therapeutic. Home Regimen: Warfarin 7.5 mg po qHS
[2019-01-23 19:46] VITALS: BP 118/64; PULSE 70; TEMP 98.2
--- NOTE | 2019-01-23 23:07 | NUR ---
PT ALERT AND ORIENYTED X4, COMPLAINING OF PAIN IN THE ABDOMEN RATING AT 9/10, SHEDULED PAIN MES GIVEN AND PRN MORPHINE WELL. PT REPORTS PAIN DWON TO 8/10. WILL CONTINUE TO MONITOR.
[2019-01-24] VITALS (7 sets, daily range): BP systolic 118–139; BP diastolic 62–77; PULSE 69–73; TEMP 97–98.9
[2019-01-24 04:22] LABS: MEAN CELL VOLUME 93 fl (80.0-100.0); MEAN CORPUSCULAR HGB CONC 32 g/dl (33.0-37.0); MEAN PLATELET VOLUME 8.4 fl (7.4-10.4); PLATELET COUNT 348 K/mm3 (130-400); REDCELL DISTRIBUTION WIDTH-CV 15.1 % (11.5-14.5)
[2019-01-24 04:25] LABS: HEMATOCRIT 29.9 % (42.0-52.0); HEMOGLOBIN 9.6 g/dl (13.5-18.0); MEAN CORPUSCULAR HEMOGLOBIN 30 pg (27.0-31.0)
[2019-01-24 04:30] LABS: INR 1.4 (0.8-3.0); PROTHROMBIN TIME 17.1 SECONDS (9.7-12.8)
[2019-01-24 04:33] LABS: CALCIUM 8.9 mg/dL (8.4-10.2); CREATININE, serum 0.94 (0.66-1.25); POTASSIUM 4.5 mmol/L (3.4-5.0)
[2019-01-24 04:36] LABS: ANISOCYTOSIS 1+; HYPOCHROMIA 1+; LYMPHOCYTE 5 % (20.0-51.0); NEUTROPHILS 92 % (42.0-75.2); PLATELET ESTIMATE NORMAL (NORMAL)
--- NOTE | 2019-01-24 05:11 | NUR ---
HEPARIN DRIP ADJUSTED PER PROTOCOL, NOW AT 1500 UNITS/HR OR 15 ML. NEXT HEP XA ORDERED AT 1030. BOTH HEP XA RESULT AND ASJUSTMENT VERIFIED WITH CHARGE NURSE SADI.
--- NOTE | 2019-01-24 05:12 | NUR ---
PT VERY UPSET AND KEEPS INSISTING TO GET HIS HAWK CATHETER OUT. WHEN ASKED WHAT'S THE REASON, HE SAID HE WANTS TO GO TO THE BATHROOM. THIS RN OFFERED TO HELP HIM GO TO THE BATHROOM BUT POT REFUSING AND WANTING THE CATHER OUT FIRST BEFORE GETTING UP. PT VERBALIZE, "I CAN'T POO IN [place] IF THIS IS HERE." PT THEN WANTING TO TALK TO WORK TICKET DISTRIBUTOR AND THIS RN THEN RELAYED THE MESSAGE. WORK TICKET DISTRIBUTOR WENT AND SPEAK WITH THE PT, AND THEN AGREED TO KEEP THE HAWK OF NOW. PT ONLY HAD 300 OUT FOR THIS SHIFT AND DR. GAY NOTIFIED ABOUT SITUATION. PT IS JUST BORDERLINE IN MAKING ENOUGH URINE, WILL LEAVE HAWK AND WILL RELAY TO DAY SHIFT NURSE. IF PT GETS REALLY UPSET AND DOES NOT WANT IT IN, HOSPITALIST IS ALSO OKAY IF HAWK GET DISCONTINUED. WILL LEAVE HAWK OF NOW PER NURSING JUDGEMENT AND WILL RELAY THSI TO ONCOMING DAY SHIFT NURSE.
--- NOTE | 2019-01-24 09:36 | NUR ---
Visited with pt this morning but he is focused on getting his catheter out. He reports he is breathing a "little better" but when asked about pain he refocuses on the catheter. By observation he does appear more comfortable in general but he does not report this. He seems to believe that the catheter is interferring with his bowel movement and reports "some bleeding" when he wipes. He does have DPOA-HC paperwork at his bedside but it is not completed.
--- NOTE | 2019-01-24 09:37 | NUR ---
Pt assessment complete. Pt is sitting up in bed upon entry, he is A/O x3. His breathing is even and unlabored on 2L O2 via NC, pt's O2 sat 96%, turned down to 1L O2 via NC. Pt currently denies SOB. Reports abdominal pain 12/27, scheduled and PRN pain medication administered. Denies N/V. Heparin drip infusing without complications. Pt requesting to have reid dc'd, pt tolerated without complications. Pt advised to call staff when needing to get up and use bathroom, bed alarm in place. Pt denies needs at this time. Call light within reach.
--- NOTE | 2019-01-24 10:56 | NUR ---
Lab contacted for HepXa level, heparin on hold at this time.
--- NOTE | 2019-01-24 11:05 | NUR ---
Follow-up visit; Patient thanked Rabbit Breeder for looking in on him, visiting and keeping him in her prayers.
--- NOTE | 2019-01-24 11:27 | NUR ---
SW's met with the patient to review discharge plan and to discuss home health services for custodial/PT/OT. SW presented the patient with [email or web address]'s list of home health agencies that serve [place]. The patient states that he is not interested in home health for those services at this time, but it is something he will think about for the future. The patient reports that he has been working with [email or web address] for additional caregiver hours. He states that they would come out T/W/. MICHAEL attempted to contact his patient case manager at [facility], [place], to confirm services. MICHAEL left her a voicemail. SW to continue to follow.
--- NOTE | 2019-01-24 11:43 | NUR ---
HepXa 0.46, therefore no change in rate, will continue at 15ml/hr. Pt aware.
--- NOTE | 2019-01-24 18:43 | NUR ---
Pt had uneventful day. Worked with PT/OT well. Continued to have pain through the day, PRN pain medications administered. Heparin continues to infuse without complications. Pt tolerating food without issues, no N/V. Denies needs at this time. Call light within reach.
--- NOTE | 2019-01-25 03:30 | NUR ---
Nurse called into room by patient, requesting PO pain medication. Nurse brought in Percocet PRN as ordered in the EMAR. Once patient took the pill he stated "You all are just trying to make me pop pills and not giving me the PO medications. Why can't you bring what I asked?" Discussed plan with patient and educated on which medications are which and whether he was wanting the IV medications or the pill form, he stated the IV. Discussed plan of care with patient and that he would not be on IV form at home and the best plan is to give the pills to see how he will adjust at home. Patient adament about getting both and "it's none of my business what he does at home." Will continue to monitor and educate.
[2019-01-25 03:31] VITALS: BP 124/82; PULSE 65
[2019-01-25 07:35] VITALS: BP 130/98; PULSE 72; TEMP 97.3
[2019-01-25 07:42] LABS: BASO % 0.1 % (0.0-2.0); GRAN # 15.4 (1.4-6.5); GRAN % 85.5 % (42.2-75.2); LYMPH # 1.2 (1.2-3.4); LYMPH % 6.6 % (20.0-51.0); MEAN CELL VOLUME 93 fl (80.0-100.0); MEAN CORPUSCULAR HGB CONC 32 g/dl (33.0-37.0); MEAN PLATELET VOLUME 8.9 fl (7.4-10.4); MONO # 1.3 (0.1-0.6); RED BLOOD COUNT 3.28 M/mm3 (4.20-5.60); REDCELL DISTRIBUTION WIDTH-CV 14.9 % (11.5-14.5)
[2019-01-25 07:49] LABS: HEMATOCRIT 30.5 % (42.0-52.0); HEMOGLOBIN 9.8 g/dl (13.5-18.0); MEAN CORPUSCULAR HEMOGLOBIN 30 pg (27.0-31.0)
[2019-01-25 07:50] LABS: PLATELET COUNT 493 K/mm3 (130-400)
[2019-01-25 07:53] LABS: CREATININE, serum 0.88 (0.66-1.25)
[2019-01-25 07:56] LABS: POTASSIUM 4.3 mmol/L (3.4-5.0)
[2019-01-25 08:04] LABS: INR 1.7 (0.8-3.0); PROTHROMBIN TIME 20.5 SECONDS (9.7-12.8)
--- NOTE | 2019-01-25 08:51 | NUR ---
Pt assessment complete. Pt sitting up in bed upon entry, he is A/O x4 but has intermittent confusion. Pt denies any SOB, currently on RA. Pt requesting PRN pain medication, states he needs more than percocet because he needs the "oral pain medication". Pt upset from overnight, stating his nurse tried to transition to oral pain medication to discharge home, but it's none of our business what he does for pain at home. Pt also continues on to state that he needs to get out of here so he can figure out "where this cancer is coming from". Attempted to explain to the patient that he has pancreatic cancer he states he doesn't understand how he got it. Attempted to explain the situation to the patient with little comprehension. Heparin infusing into R hand without complications. POC discussed with patient who shows no interest in what the nursing staff has to say. No further needs at this time. Call light within reach.
[2019-01-25] MEDS ORDERED: OMNICEF 300MG300 MG PO (09:56)
[2019-01-25] MEDS ORDERED: MEDROL 4MG DOSPA4 MG PO (09:57)
[2019-01-25] MEDS ORDERED: FENTANYL 50MCG TD (10:00)
--- NOTE | 2019-01-25 10:06 | NUR ---
Initial visit; Patient thanked Bar Finish Operator for coming in again today, bringing him a 'Daily Word' for Cancer patients, offering a blessing for him, and getting him to talk about his family and his dae in God.
--- NOTE | 2019-01-25 10:21 | NUR ---
Assisted the patient in lovenox injection. Pt able to perform task appropriately. Pt chooses to give injection in thigh, verified with pharmacy this is okay. Pt has no questions at this time. Handout with administration instructions given to patient.
[2019-01-25] MEDS ORDERED: LOVENOX 100100 MG/ML SQ (10:32)
[2019-01-25 12:46] VITALS: BP 108/63; PULSE 80; TEMP 98.2
--- NOTE | 2019-01-25 13:17 | NUR ---
The patient is to discharge back home today, 01/25, and resume private duty services from [facility]. SW presented and explained the IM form to the patient. The patient verbalized understanding, signed, and he was provided a copy. He did not have any other questions or concerns for SW. No additional needs at this time.
--- NOTE | 2019-01-25 13:19 | NUR ---
Discharge instructions and paperwork reviewed with patient. All questions answered at this time. IV to Quinton caruso Catheter tip intact. Pt walked out of facility at this time.
== END 2019-01-25 13:20 | disposition home or self-care (01) | DRG 186 ==
LOC: COL.ER 09:59 → MEDICAL 11:35
PROVIDERS: Emergency Medicine; Nurse Practitioner Family; Physician Assistant; ADMIT Internal Medicine
PROC: 0W9B3ZZ Drainage of Left Pleural Cavity, Percutaneous Approach (ICD-10-PCS; principal; 2019-01-23)
DX: J90 Pleural effusion, not elsewhere classified (principal); J96.01 Acute respiratory failure with hypoxia; C78.7 Secondary malignant neoplasm of liver and intrahepatic bile duct; C78.00 Secondary malignant neoplasm of unspecified lung; I50.32 Chronic diastolic (congestive) heart failure; E87.4 Mixed disorder of acid-base balance; E44.0 Moderate protein-calorie malnutrition; I11.0 Hypertensive heart disease with heart failure; E78.5 Hyperlipidemia, unspecified; I08.2 Rheumatic disorders of both aortic and tricuspid valves; G89.29 Other chronic pain; I25.10 Atherosclerotic heart disease of native coronary artery without angina pectoris; I48.91 Unspecified atrial fibrillation; E11.9 Type 2 diabetes mellitus without complications; Z79.01 Long term (current) use of anticoagulants; Z79.4 Long term (current) use of insulin; Z79.891 Long term (current) use of opiate analgesic; Z95.0 Presence of cardiac pacemaker; Z95.2 Presence of prosthetic heart valve; Z95.1 Presence of aortocoronary bypass graft; Z85.07 Personal history of malignant neoplasm of pancreas; Z86.711 Personal history of pulmonary embolism
CPT/HCPCS: 99223-AI; 99232-AI; 99239; A4216; J0692; J1170; J1644; J1650; J1815; J1940; J2270; J2405; J2550; J2920; J3010; J7512

== ENCOUNTER 2019-02-05 13:36 | Inpatient (IN) | payer MEDICARE, MEDICAID ==
[~2019-02-05] VITALS: Ht 180.3 cm; Wt 94.8 kg
[~2019-02-05 13:36] MED LIST changes: +FENTANYL 50MCG TD; +LOVENOX 100100 MG/ML SQ; +MEDROL 4MG DOSPA4 MG PO; +OMNICEF 300MG300 MG PO
[2019-02-05] MEDS ORDERED: CELEXA 20MG20 MG/TAB PO (13:53)
[2019-02-05] MEDS ORDERED: PREVACID 30MG30 M1 PO (13:54)
[2019-02-05] MEDS ORDERED: LASIX 20MG TABL20 MG PO (13:54)
[2019-02-05] MEDS ORDERED: CORDARONE200 MG/TAB PO (13:55)
[2019-02-05] MEDS ORDERED: NORVASC 10MG10 MG PO (13:55)
[2019-02-05] MEDS ORDERED: NEURONTIN600 MG/TAB PO (13:56)
[2019-02-05] MEDS ORDERED: TOPROL XL100 MG PO (13:57)
[2019-02-05] MEDS ORDERED: FORT1000TA PO (13:57)
[2019-02-05] MEDS ORDERED: ZOCOR 20MG20 MG PO (13:57)
[2019-02-05] MEDS ORDERED: DESYREL 50MG50 MG PO (13:58)
[2019-02-05] MEDS ORDERED: JARDIANCE10 PO (13:58)
[2019-02-05] MEDS ORDERED: COUMADIN 6MG6 MG/TAB PO (13:59)
[2019-02-05] MEDS ORDERED: FENTANYL 50MCG TD (14:00)
[2019-02-05] MEDS ORDERED: MICARDIS80 MG PO (14:00)
[2019-02-05] MEDS ORDERED: NITRO-DUR0.2 MG/PAT TD (14:01)
[2019-02-05] MEDS ORDERED: MS CONTIN 330 MG/TAB PO (14:03)
[2019-02-05] MEDS ORDERED: PERCOCET 325 MG1 TAB PO (14:04)
[2019-02-05] MEDS ORDERED: HUMULIN 70/3100 U/M1 SQ (14:05)
[2019-02-05 14:42] LABS: BASO % 0.2 % (0.0-2.0); EOS % 0.3 % (0-4.0); GRAN # 6.5 (1.4-6.5); GRAN % 73.6 % (42.2-75.2); LYMPH # 1.3 (1.2-3.4); LYMPH % 14.2 % (20.0-51.0); MEAN CELL VOLUME 92 fl (80.0-100.0); MEAN CORPUSCULAR HGB CONC 33 g/dl (33.0-37.0); MEAN PLATELET VOLUME 9.4 fl (7.4-10.4); MONO # 0.9 (0.1-0.6); MONO % 10.5 % (1.7-9.3); PLATELET COUNT 170 K/mm3 (130-400); RED BLOOD COUNT 2.88 M/mm3 (4.20-5.60); REDCELL DISTRIBUTION WIDTH-CV 15.8 % (11.5-14.5)
[2019-02-05 14:44] LABS: HEMATOCRIT 26.4 % (42.0-52.0); HEMOGLOBIN 8.7 g/dl (13.5-18.0); MEAN CORPUSCULAR HEMOGLOBIN 30 pg (27.0-31.0)
[2019-02-05 14:52] LABS: ALBUMIN 3.2 gm/dL (3.5-5.0); BILIRUBIN,TOTAL 0.3 mg/dL (0.0-1.0); CALCIUM 8.9 mg/dL (8.4-10.2); CREATININE, serum 0.92 (0.66-1.25); POTASSIUM 4.3 mmol/L (3.4-5.0); TOTAL PROTEIN 6.4 gm/dL (6.4-8.2)
[2019-02-05 16:46] LABS: INR 2.9 (0.8-3.0); PROTHROMBIN TIME 35.3 SECONDS (9.7-12.8)
[2019-02-05 17:31] LABS: COLLECTION METHOD CLEAN CATCH
[2019-02-05 17:37] LABS: PH 7 (5-8); SQUAMOUS EPITHELIAL None Seen /hpf; URINE APPEARANCE Clear; URINE BACTERIA None Seen /hpf; URINE BILIRUBIN Negative (NEGATIVE); URINE BLOOD Negative (NEGATIVE); URINE COLOR Yellow; URINE GLUCOSE 3+ (NEGATIVE); URINE KETONE Negative (NEGATIVE); URINE LEUKOCYTE ESTERASE Negative (NEGATIVE); URINE NITRATE Negative (NEGATIVE); URINE PROTEIN(semi-quant) Negative (NEGATIVE); URINE RBC 0-2 /hpf; URINE UROBILINOGEN Negative (NEGATIVE)
[2019-02-05] MEDS ORDERED: ZOFRAN8 MG PO (20:17)
[2019-02-05] MEDS ORDERED: AMBIEN 10MG10 MG PO (20:22)
[2019-02-05 21:02] VITALS: BP 97/50; PULSE 96; TEMP 98.1
[2019-02-05 21:24] LABS: TROPONIN-I < 0.012 ng/mL (0.000-0.035)
--- NOTE | 2019-02-05 22:51 | NUR ---
Patient arrived from ED. Dx of pleural effusion. Has syncopal episode a few days ago and hit head. CT head/neck obtained here. Has hx of a-fib, stopped coumadin and put on heparin gtt. 20g left a/c. Running at 16.5/hr. Tolerating fine. VSS and alert and oriented. Ambulatory with walker but needs x1 assist. Denies SOB or chest pain. Call light within reach, will continue to monitor
--- NOTE | 2019-02-06 00:22 | NUR ---
Attempted to do patients med-rec. States his pills are packaged already by pharmacy and does not know when he takes what.
[2019-02-06 00:31] VITALS: BP 94/49; PULSE 71; TEMP 98
[2019-02-06 04:00] VITALS: BP 98/65; PULSE 68; TEMP 98.2
[2019-02-06 06:33] LABS: BASO % 0.4 % (0.0-2.0); EOS # 0.1 (0.0-0.7); EOS % 1.6 % (0-4.0); GRAN # 4.7 (1.4-6.5); GRAN % 61.9 % (42.2-75.2); LYMPH # 1.6 (1.2-3.4); LYMPH % 21.7 % (20.0-51.0); MEAN CELL VOLUME 93 fl (80.0-100.0); MEAN CORPUSCULAR HGB CONC 32 g/dl (33.0-37.0); MEAN PLATELET VOLUME 9.8 fl (7.4-10.4); MONO # 0.9 (0.1-0.6); MONO % 12.5 % (1.7-9.3); PLATELET COUNT 186 K/mm3 (130-400); RED BLOOD COUNT 2.83 M/mm3 (4.20-5.60); REDCELL DISTRIBUTION WIDTH-CV 15.8 % (11.5-14.5)
[2019-02-06 06:45] LABS: HEMATOCRIT 26.4 % (42.0-52.0); HEMOGLOBIN 8.5 g/dl (13.5-18.0); MEAN CORPUSCULAR HEMOGLOBIN 30 pg (27.0-31.0)
[2019-02-06 06:52] LABS: ALANINE AMINOTRANSFERASE 19 U/L (21-72); ALKALINE PHOSPHATASE 98 U/L (50-136); ANION GAP 5 mmol/L (7-16); AST,SGOT 21 U/L (15-37); BILIRUBIN,TOTAL 0.2 mg/dL (0.0-1.0); BLOOD UREA NITROGEN 14 mg/dL (9-20); CALCIUM 8.6 mg/dL (8.4-10.2); CARBON DIOXIDE 25 mmol/L (22-30); CHLORIDE 105 mmol/L (98-107); CREATININE, serum 1.02 (0.66-1.25); GLUCOSE 95 mg/dL (74-106); POTASSIUM 4.5 mmol/L (3.4-5.0); SODIUM 135 mmol/L (137-145); TOTAL PROTEIN 6.1 gm/dL (6.4-8.2)
[2019-02-06 07:13] LABS: TROPONIN-I 6 HR POST INITIAL < 0.012 ng/mL (0.000-0.034)
[2019-02-06 07:20] VITALS: BP 119/76; PULSE 72; TEMP 98.2
[2019-02-06 07:39] LABS: PROTHROMBIN TIME 23.7 SECONDS (9.7-12.8)
--- NOTE | 2019-02-06 08:10 | NUR ---
Patient in bed resting. Alert and oriented x 3. Shift assessment complete. Heparin infusing to right forarm. INT noted to left AC. Tele in place. Denies further needs at this time.
--- NOTE | 2019-02-06 08:20 | NUR ---
Contacted Beba DHALIWAL about critical lab. Heparin stopped, new lab orders entered.
--- NOTE | 2019-02-06 10:00 | NUR ---
Contacted scheduling for pleurx drain placement. Patient scheduled for 0800 on 02/07/19. New lab orders entered per Dr. Mooney.
--- NOTE | 2019-02-06 10:49 | NUR ---
Social Workers met with the patient to discuss discharge planning. Patient reports he still sees Dr. Zurita for primary care and has his medications delivered by [facility]. Patient lives alone in [place] and is able to drive independently. Patient reports no other social supports. Patient reports he utilizes a walker at home. Patient does not have DPOA-HC and states his daughter was going to fill out the form at one time. SW's provided an additional form as patient expressed interest in completing. SWs will continue to follow to ensure safe discharge.
[2019-02-06 11:12] LABS: PARTIAL THROMBOPLASTIN TIME 54.7 SECONDS (26.0-37.0)
--- NOTE | 2019-02-06 11:37 | NUR ---
Heparin restarted at a rate of 13.5 ml/hr per orders.
--- NOTE | 2019-02-06 11:39 | NUR ---
Contacted Teresa RODRIGUEZ, patient c/o nausea, offered PO zofran, patient states he is sick of taking pills, new order for IV zofran.
--- NOTE | 2019-02-06 11:40 | NUR ---
Follow-up visit; Patient thanked Chief Psychology for looking in on him, listening and offering prayer and God's blessings.
[2019-02-06 11:50] VITALS: BP 109/77; PULSE 71; TEMP 97.9
--- NOTE | 2019-02-06 13:20 | NUR ---
We are anticpating pleurx drain placement tomorrow morning at 8am. I did review with the patient what a pleurx drain is, how it works, and his questions were answered. One of his questions was what do I do if draining doesn't help my breathing? He was instructed that he should not drain more than 1000ml from the chest daily and if that did not help, then he should go to the hospital for further evaluation. I will clarify with Dr Cardenas omorrow as to what frequency he should bee drained. He reports having no family or friends who could help him with the drainage. I spoke with adoption social worker, Hyun, about needing home health for this service. Pt reports that he has 3 Torres but doesn't have home health. Also home health services should provide nurse at the frequency of needed drainage and the bottles that would be used.
--- NOTE | 2019-02-06 15:11 | NUR ---
SW met with the patient to complete the re-admission patient interview. SW will continue to follow.
[2019-02-06 15:48] VITALS: BP 105/59; PULSE 70; TEMP 98.6
--- NOTE | 2019-02-06 16:44 | NUR ---
Notified Teresa RODRIGUEZ, patient complains of nausea, TORB zofran order changed to every 4 hrs prn
[2019-02-06 18:07] LABS: INR 1.5 (0.8-3.0); PROTHROMBIN TIME 18.3 SECONDS (9.7-12.8)
--- NOTE | 2019-02-06 18:26 | NUR ---
Patient has done well throughout the day. Nausea medication given per orders. Denies pain at this time. Heparin infusing per orders to right AC. Patient has scabs to BLE that he began picking at this afternoon, dressing applied. Patient states scabs are from when he fell at home a couple of days ago. Denies further needs at this time. Will report off to night warehouse manager.
[2019-02-06 20:00] VITALS: BP 90/50; PULSE 72; TEMP 98.2
--- NOTE | 2019-02-06 20:15 | NUR ---
Shift assessment complete. Pt resting in bed, awake, a&o, cooperative c cares. Pt c/o continued chronic abd pain; will give PRN pain meds c HS meds per pt request. Pt denies any other c/o at this time. INT patent; Heparin gtt infusing per orders. Pt denies further needs at this time. Call light in reach, will continue to monitor.
[2019-02-07] VITALS: BP 100/55; PULSE 70; TEMP 98.4
[2019-02-07 04:00] VITALS: BP 93/53; PULSE 73; TEMP 98.3
[2019-02-07 07:16] VITALS: BP 106/68; PULSE 71; TEMP 98.7
[2019-02-07 07:16] LABS: MEAN CELL VOLUME 95 fl (80.0-100.0); MEAN CORPUSCULAR HGB CONC 32 g/dl (33.0-37.0); MEAN PLATELET VOLUME 8.7 fl (7.4-10.4); PLATELET COUNT 191 K/mm3 (130-400); RED BLOOD COUNT 2.74 M/mm3 (4.20-5.60); REDCELL DISTRIBUTION WIDTH-CV 15.8 % (11.5-14.5)
[2019-02-07 07:18] LABS: HEMATOCRIT 25.9 % (42.0-52.0); HEMOGLOBIN 8.3 g/dl (13.5-18.0); MEAN CORPUSCULAR HEMOGLOBIN 30 pg (27.0-31.0)
[2019-02-07 07:30] LABS: CALCIUM 8.6 mg/dL (8.4-10.2); CREATININE, serum 1.1 (0.66-1.25); POTASSIUM 4.4 mmol/L (3.4-5.0)
[2019-02-07 07:38] LABS: INR 1.4 (0.8-3.0)
[2019-02-07 07:41] LABS: PARTIAL THROMBOPLASTIN TIME 31.5 SECONDS (26.0-37.0)
--- NOTE | 2019-02-07 08:00 | NUR ---
Patient in bed resting. Alert and oriented x 3. Shift assessment complete. INT's intact. denies further needs a tthis time.
[2019-02-07 08:03] LABS: BAND 1 % (0-10); BASOPHIL 2 % (0-2); EOSINOPHIL 1 % (0-4); LYMPHOCYTE 21 % (20.0-51.0); METAMYELOCYTE 1 % (0-0); NEUTROPHILS 71 % (42.0-75.2); PLATELET ESTIMATE NORMAL (NORMAL)
--- NOTE | 2019-02-07 08:03 | NUR ---
Patient down for procedure
[2019-02-07 08:04] LABS: ANISOCYTOSIS 1+; BURR CELLS 1+; TARGET CELLS 1+
--- NOTE | 2019-02-07 09:13 | NUR ---
02/06/2019 Theatre Professor spoke with Celia (ph#[phone]) from [facility] about patient's current services. MICHAEL and Celia discussed discharge planning and patient needs upon discharge. MICHAEL will continue to follow.
--- NOTE | 2019-02-07 09:33 | NUR ---
At this time pt is not homebound, has no family or friends he reports that could assist with his drainage, and after explaining to pt what the process would be to do the drainage, I am very concerned that he will not be able to manage a pleuerx drain at home. This concerned was shared with Dr Mooney who did not place a pleurx drain at this time.
--- NOTE | 2019-02-07 09:52 | NUR ---
Patient back from CT
--- NOTE | 2019-02-07 10:51 | NUR ---
Follow-up visit; Housekeeper/Laundry Assistant offered comfort and encouragement and prayer for Kiran who is anxious about his being transferred to another hospital where they will be able to treat him more effectively.
[2019-02-07 11:13] LABS: PARTIAL THROMBOPLASTIN TIME 32.1 SECONDS (26.0-37.0)
[2019-02-07 12:34] VITALS: BP 111/71; PULSE 72; TEMP 98
[2019-02-07 16:06] VITALS: BP 118/67; PULSE 73; TEMP 98.1
--- NOTE | 2019-02-07 16:06 | NUR ---
Patient called out to nurses station, states pain 7/10 to left flank. Requests something for pain. Given Medications per orders.
[2019-02-07 16:17] VITALS: BP 118/67; PULSE 73; TEMP 98.1
--- NOTE | 2019-02-07 17:30 | NUR ---
Patient out by EMS to [facility]. Ambulated to streacher, steady gait. Report called to RN at [facility]. Patient denies pain or further needs at this time.
== END 2019-02-07 15:30 | disposition short-term general hospital (02) | DRG 181 ==
LOC: COL.ER 13:36 → SURG 17:48
PROVIDERS: Emergency Medicine; Hospitalist; Internal Medicine Pulmonary Disease; Nurse Practitioner Family; Physician Assistant; ADMIT Family Medicine
DX: C78.00 Secondary malignant neoplasm of unspecified lung (principal); C78.7 Secondary malignant neoplasm of liver and intrahepatic bile duct; I50.32 Chronic diastolic (congestive) heart failure; C25.9 Malignant neoplasm of pancreas, unspecified; J98.11 Atelectasis; J91.0 Malignant pleural effusion; E78.5 Hyperlipidemia, unspecified; I11.0 Hypertensive heart disease with heart failure; I48.91 Unspecified atrial fibrillation; G89.29 Other chronic pain; I25.10 Atherosclerotic heart disease of native coronary artery without angina pectoris; I07.1 Rheumatic tricuspid insufficiency; E11.9 Type 2 diabetes mellitus without complications; Z79.01 Long term (current) use of anticoagulants; Z79.891 Long term (current) use of opiate analgesic; Z79.4 Long term (current) use of insulin; Z95.1 Presence of aortocoronary bypass graft; Z95.2 Presence of prosthetic heart valve; Z86.711 Personal history of pulmonary embolism
CPT/HCPCS: 99222-AI; 99239; A4216; J0692; J1644; J1815; J2250; J2270; J2405; J2704; J3010; J3430; Q9967

== ENCOUNTER 2019-02-15 11:15 | Inpatient (IN) | payer MEDICARE, MEDICAID ==
[2019-02-14 22:30] VITALS: BP 179/98; PULSE 75
[2019-02-15] VITALS (105 sets, daily range): BP systolic 146–179; BP diastolic 86–98; PULSE 75–87; TEMP 97.8–98.5; O2SAT 85–100
[~2019-02-15] VITALS: Ht 180.3 cm; Wt 93.4 kg
[~2019-02-15 11:15] MED LIST changes: +FORT1000TA PO; +MS CONTIN 330 MG/TAB PO; +PREVACID 30MG30 M1 PO; +ZOFRAN8 MG PO
[2019-02-15 14:01] LABS: BASO % 0.2 % (0.0-2.0); GRAN # 5.9 (1.4-6.5); GRAN % 69.9 % (42.2-75.2); LYMPH # 1.2 (1.2-3.4); LYMPH % 13.8 % (20.0-51.0); MEAN CELL VOLUME 91 fl (80.0-100.0); MEAN CORPUSCULAR HGB CONC 33 g/dl (33.0-37.0); MEAN PLATELET VOLUME 8.3 fl (7.4-10.4); MONO # 1.3 (0.1-0.6); MONO % 15.2 % (1.7-9.3); PLATELET COUNT 388 K/mm3 (130-400); RED BLOOD COUNT 3.18 M/mm3 (4.20-5.60)
[2019-02-15 14:03] LABS: HEMATOCRIT 28.9 % (42.0-52.0); HEMOGLOBIN 9.5 g/dl (13.5-18.0); MEAN CORPUSCULAR HEMOGLOBIN 30 pg (27.0-31.0)
[2019-02-15 14:09] LABS: INR 1.7 (0.8-3.0); PROTHROMBIN TIME 20.4 SECONDS (9.7-12.8)
[2019-02-15 14:12] LABS: PARTIAL THROMBOPLASTIN TIME 34.1 SECONDS (26.0-37.0)
[2019-02-15 14:14] LABS: ALBUMIN 3.8 gm/dL (3.5-5.0); BILIRUBIN,TOTAL 0.7 mg/dL (0.0-1.0); CALCIUM 9.4 mg/dL (8.4-10.2); CREATININE, serum 0.73 (0.66-1.25); POTASSIUM 3.5 mmol/L (3.4-5.0); TOTAL PROTEIN 7.5 gm/dL (6.4-8.2)
[2019-02-15 14:33] LABS: TROPONIN-I 0.066 ng/mL (0.000-0.035)
--- NOTE | 2019-02-15 18:11 | NUR ---
Report recieved from Jaci YING. Will transport patient to ICU when able
--- NOTE | 2019-02-15 18:35 | NUR ---
Patient arrives to ICU 4 via bed with RN x1 at side. Patient is able to stand to transfer to bed with assist 2. Refuses to remove sweat pants or joey shirt at this time. "Cold in here." Call light in reach, explained out to use. Water provided. Dr. Rodriguez here and entering orders at this time.
--- NOTE | 2019-02-15 19:10 | NUR ---
Warfarin Initial Dosing Pharmacy Note Ordering Provider: Hemant Rodriguez MD Indication: VTE Prophylaxis LABS: INR 1.7, Hgb 9.5, Hct 28.9 Recommendation: warfarin 6 mg qhs. check daily INR to adjust Home Regimen: warfarin 6 mg qhs. Pt with hx of PE and metastatic pancreatic cancer
--- NOTE | 2019-02-15 19:10 | NUR ---
Report received from DEONNA Garcia. Patient care transfered.
--- NOTE | 2019-02-15 19:48 | NUR ---
Report given to Jojo YING. Dr. Mooney in room to see patient for Pulmonary Consult at this time.
--- NOTE | 2019-02-15 20:20 | NUR ---
Patient reporting 9/10 abdominal pain which he is unable to describe. Also having nausea with no emesis. Morphine CENTRAL OFFICE MAINTAINER pump started and PRN Zofran given. Patient is alert and oriented. Patient also reporting shortness of breath and answers questions in short sentances or brief yes or no responses. 02 currenlty 100% on 2L. Will continue to monitor.
--- NOTE | 2019-02-15 20:45 | NUR ---
Family at bedside. Addressed questions and concerns. Family wished to speak with Dr. Rodriguez. Called and had Dr. Rodriguez further discuss pt situation with the daughter; family appeared satisfied with this.
--- NOTE | 2019-02-15 20:45 | NUR ---
Called on-call pharmacy per hospitalist to request which heparin protocol to use for mechanical valve. Instructed to use low dose 12mcg/kg/min.
--- NOTE | 2019-02-15 20:45 | NUR ---
Patient had fentanyl patch on right arm from home. Removed due to starting morphine EDGE SAWYER and patient reporting nausea.
--- NOTE | 2019-02-15 21:00 | NUR ---
Unable to complete med rec as patient not able to verbalize his medications.
[2019-02-16] VITALS (319 sets, daily range): BP systolic 99–160; BP diastolic 54–97; PULSE 68–77; TEMP 97.4–98.9; O2SAT 93–100
--- NOTE | 2019-02-16 | NUR ---
Resting quietly in bed. Wakes easily while on CARDIAC CATH TECHNOLOGIST pump and responds to nurse. Reports still having abdominal pain which he cannot describe, but it is "better". Will continue to monitor.
[2019-02-16 03:27] LABS: MEAN CELL VOLUME 91 fl (80.0-100.0); MEAN CORPUSCULAR HGB CONC 32 g/dl (33.0-37.0); MEAN PLATELET VOLUME 8.3 fl (7.4-10.4); PLATELET COUNT 342 K/mm3 (130-400); RED BLOOD COUNT 3.11 M/mm3 (4.20-5.60); REDCELL DISTRIBUTION WIDTH-CV 16.4 % (11.5-14.5)
[2019-02-16 03:29] LABS: HEMATOCRIT 28.4 % (42.0-52.0); HEMOGLOBIN 9.2 g/dl (13.5-18.0); MEAN CORPUSCULAR HEMOGLOBIN 30 pg (27.0-31.0)
[2019-02-16 03:32] LABS: INR 1.6 (0.8-3.0); PROTHROMBIN TIME 18.5 SECONDS (9.7-12.8)
[2019-02-16 03:36] LABS: ALBUMIN 3.5 gm/dL (3.5-5.0); BILIRUBIN,TOTAL 0.6 mg/dL (0.0-1.0); CALCIUM 8.8 mg/dL (8.4-10.2); CREATININE, serum 0.8 (0.66-1.25); MAGNESIUM 1.5 mg/dL (1.6-2.3); POTASSIUM 3.7 mmol/L (3.4-5.0); TOTAL PROTEIN 6.9 gm/dL (6.4-8.2)
[2019-02-16 03:55] LABS: TROPONIN-I 0.055 ng/mL (0.000-0.035)
[2019-02-16 04:09] LABS: ANISOCYTOSIS 1+; BAND 2 % (0-10); HYPOCHROMIA 1+; LYMPHOCYTE 16 % (20.0-51.0); NEUTROPHILS 68 % (42.0-75.2); OVALOCYTES 1+
--- NOTE | 2019-02-16 04:34 | NUR ---
Critical troponin not called to physician due to trending down.
--- NOTE | 2019-02-16 04:38 | NUR ---
Denies nausea at this time; no requests made to nurse. Resting quietly between disturbances. Will continue to monitor.
--- NOTE | 2019-02-16 07:30 | NUR ---
PATIENT REPORT RECEIVED FROM DEONNA GRECO. PT SITTING UP IN BED, INFUSIONS REVIEWED, PATIENT STATES HE IS IN PAIN BUT DOESN'T NEED ANYTHING ELSE, ENCOURAGED TO USE PROPULSION SYSTEMS ENGINEER IF NEEDED, REVIEWED CALL LIGHT SYSTEM WELL. CARE TAKEN OVER AT THIS TIME.
--- NOTE | 2019-02-16 10:34 | NUR ---
COMPOSER TEACHING ARTIST student attended clinical rounds with the team. The patient is moving to surgical floor and a pallative care consult was ordered. After rounds COMPOSER TEACHING ARTIST student met with the patient. The patient lives alone in [place]. The patient has a walker. The patient's PCP is Dr. Zurita and patient receives medications from [facility] with no difficulties. The patient has advanced directives in the EMR and designate his daughter, Mellissa . financial services representative will continue to follow to ensure a safe discharge.
--- NOTE | 2019-02-16 12:21 | NUR ---
Palliative care nurse met with Kiran and his daughter Sylvia. Kiran shared that Dr oRdriguez had advised him that he would have to go to a long-term for care, that he could not return home alone. Both he and his daughter are very against going into hospice--"that is just sitting there waiting to ". He did state that it is time for him to go be with his . Per Sylvia, his 6 years ago. Sylvia was encouraged to go look at the various nursing homes and hospice house. They do not want to look at [facility] as had a bad experience there with family. Daughter is very concerned that Kiran will change his mind and not go to the long-term. She verbalizes that he is a fighter but also realizes herself that his life is very limited and that is coming, whether they want it or not. Support provided, contact information provided, and we will continue to followas family works to make a decision.
--- NOTE | 2019-02-16 12:45 | NUR ---
REPORT CALLED TO JABIER AT 1140-PATIENT TRANSFERRED TO NEW UNIT VIA WHEELCHAIR-TOLERATED WELL, BELONGINGS IN HAND, FAMILY AWARE OF TRANSFER. IV INFUSIONS CONTINUED ORDERED, CARE TRANSFERRED AT THIS TIME.
--- NOTE | 2019-02-16 19:32 | NUR ---
Pt up from ICU this afternoon, has C/O pain not being relieved by the MILL OPERATOR HELPER pump, educated Pt on use of the pump, med rec completed, VS have remained stable since being on the floor.
--- NOTE | 2019-02-16 19:34 | NUR ---
Report given to DEONNA Corcoran.
--- NOTE | 2019-02-16 19:45 | NUR ---
Assessment completed. Sitting up in bed. Explains that he has nausea. Administered Zofran as ordered. Educated patient on use of PROFESSOR OF COMMUNICATION AND WRITING for pain relief. Has chronic pain in abdomen. Family in room visiting with the patient. Patient son calls and speaks with the patient. Pleurex drain with dressing CDI. PICC in right upper arm without redness/edema/drainage. Patient denies further needs at this time. BP medication not administered as BP was low.
--- NOTE | 2019-02-16 22:50 | NUR ---
Ambulates approximately 500 feet with use of walker. Gait steady. Minimal discomfort. Continues to use QUALITY AUDIT REPRESENTATIVE for pain. Returns to room and sits on edge of bed. Denies further needs.
[2019-02-17] VITALS (14 sets, daily range): BP systolic 96–128; BP diastolic 56–92; PULSE 70–77; TEMP 97.7–98.9
--- NOTE | 2019-02-17 04:36 | NUR ---
Lying in bed with eyes closed. Eyes open when name is called out. Respiratory rate 12. On O2 at 3L/NC. Continues to use Morphine DRAPERY COUNSELOR for pain. Explains that he has pain in his left upper abd into chest, near the drain, and it gets sore when the area is touched. Patient getting frustrated that the DRAPERY COUNSELOR beeps when he is sleeping. Explained that it helps to monitor his respirations and when they get too low that is when the machine when will beep to alert us of the low respirations. Patient says that he also has sleep apnea that does not help the situation either. Keeps falling asleep in mid conversation, very drowsy when awakens. Denies further needs or concerns at this time.
--- NOTE | 2019-02-17 06:34 | NUR ---
Sitting up in bed. Explains that he still has pain, this is chronic pain. Patient would like to eat a sandwich. Provided sandwich box to the patient. Patient denies further needs or concerns at this time.
[2019-02-17 06:40] LABS: BASO % 0.5 % (0.0-2.0); EOS # 0.2 (0.0-0.7); GRAN # 3.8 (1.4-6.5); GRAN % 60.6 % (42.2-75.2); LYMPH # 1.2 (1.2-3.4); LYMPH % 18.9 % (20.0-51.0); MEAN CELL VOLUME 95 fl (80.0-100.0); MEAN CORPUSCULAR HGB CONC 31 g/dl (33.0-37.0); MEAN PLATELET VOLUME 8.5 fl (7.4-10.4); MONO % 15.9 % (1.7-9.3); PLATELET COUNT 297 K/mm3 (130-400); RED BLOOD COUNT 2.61 M/mm3 (4.20-5.60); REDCELL DISTRIBUTION WIDTH-CV 16.3 % (11.5-14.5)
[2019-02-17 07:02] LABS: ALBUMIN 2.6 gm/dL (3.5-5.0); BILIRUBIN,TOTAL 0.2 mg/dL (0.0-1.0); CALCIUM 8.2 mg/dL (8.4-10.2); CREATININE, serum 0.79 (0.66-1.25); POTASSIUM 3.8 mmol/L (3.4-5.0); TOTAL PROTEIN 5.6 gm/dL (6.4-8.2)
[2019-02-17 07:04] LABS: INR 1.9 (0.8-3.0); PROTHROMBIN TIME 22.3 SECONDS (9.7-12.8)
[2019-02-17 07:20] LABS: HEMATOCRIT 24.8 % (42.0-52.0); HEMOGLOBIN 7.6 g/dl (13.5-18.0); MEAN CORPUSCULAR HEMOGLOBIN 29 pg (27.0-31.0)
--- NOTE | 2019-02-17 10:24 | NUR ---
Spoke with Kiran this morning about Where he might hope to discharge to. her replied that he didn't have money for a shelter or the hospice house--they would take his monthly check. We talked about the hospice house sliding scale and that we could have the social work administrator come over and talk with him about finances and what the hospice house provides. He was willing to do this and I got his permission to send his information to [facility] and set up a visit with Esequiel from [facility] around 1330. If he is agreeable, he could transfer there later today per Sonido. he is resting right now.
--- NOTE | 2019-02-17 10:35 | NUR ---
Patient assessed by primary nurse, Hernan YING, was unable to locate fentanyl patch. I was asked to assess with him. Bed, linens and patient was checked for patch and was not found. Patient had reported that the patch was located on his right shoulder. New patch with changed dose was visually placed to right upper back by Hernan YING. Did have difficulty with patch adhering to skin. Hernan did reinforce patch with extra adhesive which seemed to be effective.
--- NOTE | 2019-02-17 10:37 | NUR ---
Fentynal patch replaced this AM, hipafix applied over patch to retain on Pt, old patch applied on 02/15 not found on Pt or on the bed, missing patch verified by DEONNA Ruiz.
--- NOTE | 2019-02-17 12:34 | NUR ---
Follow up visit from the country sales manager. No needs right now.
--- NOTE | 2019-02-17 13:56 | NUR ---
Primary nurse was assisted by [phone] patient care by [facility] student Solitario Leon and [facility] instructor Nitza Mcgovern RN-.
--- NOTE | 2019-02-17 14:18 | NUR ---
Pt did meet with Esequiel from [facility] and is agreeable to go to the [facility]. He does not to be discharged until Wednesday because the doctor is going to drain his pleurx drain then. He told me that i was pushing out of the hospital too fast and I needed to be true to my word. I asked the Dr Boston talk with him this afternoon.
--- NOTE | 2019-02-17 18:34 | NUR ---
Pt resting in room today, has been having some breakthrough pain at times, transfusing one unit of LRPC at this time, VS have remained stable.
--- NOTE | 2019-02-17 19:30 | NUR ---
Received report from DEONNA Becerra Pt standing in doorway when arrived to pt room. Pt is complaining of the INTELLIGENCE ANALYST pump alarming for close to 1 hour. Pt co2 monitor was alarming disconnnect occluded. Called RT to assist with and they were able to fix the alarm. Pt assessment completed. Pt is currently sitting on the side of the bed taking his evening medication. INTELLIGENCE ANALYST pump medciation is replaced, and pt is content. Pt layed down and requested a warm blanket of which was brought to him. Pt is now resting for the night. Call light and phone within reach. No further concerns at this time.
[2019-02-18] VITALS (11 sets, daily range): BP systolic 100–126; BP diastolic 52–73; PULSE 56–85; TEMP 97.7–98.8
[2019-02-18 05:57] LABS: MEAN CELL VOLUME 95 fl (80.0-100.0); MEAN CORPUSCULAR HGB CONC 31 g/dl (33.0-37.0); MEAN PLATELET VOLUME 8.7 fl (7.4-10.4); PLATELET COUNT 213 K/mm3 (130-400); RED BLOOD COUNT 2.61 M/mm3 (4.20-5.60); REDCELL DISTRIBUTION WIDTH-CV 16.3 % (11.5-14.5)
[2019-02-18 05:59] LABS: HEMATOCRIT 24.7 % (42.0-52.0); HEMOGLOBIN 7.6 g/dl (13.5-18.0); MEAN CORPUSCULAR HEMOGLOBIN 29 pg (27.0-31.0)
[2019-02-18 06:00] LABS: INR 2.2 (0.8-3.0); PROTHROMBIN TIME 26.5 SECONDS (9.7-12.8)
[2019-02-18 06:03] LABS: CALCIUM 7.5 mg/dL (8.4-10.2); CREATININE, serum 0.65 (0.66-1.25); POTASSIUM 4.1 mmol/L (3.4-5.0)
[2019-02-18 07:09] LABS: PLATELET ESTIMATE NORMAL (NORMAL)
[2019-02-18 07:12] LABS: ANISOCYTOSIS 1+; BAND 5 % (0-10); EOSINOPHIL 3 % (0-4); LYMPHOCYTE 17 % (20.0-51.0); METAMYELOCYTE 1 % (0-0); NEUTROPHILS 63 % (42.0-75.2)
--- NOTE | 2019-02-18 07:58 | NUR ---
Report given to DEONNA Becerra. Pt handoff complete. No further concerns at this time.
--- NOTE | 2019-02-18 09:39 | NUR ---
Pt awake and alert upon entry, C/O pain 10/26, shift assessments complete, left Pt call light in reach.
--- NOTE | 2019-02-18 19:10 | NUR ---
Pt resting in room, independent, VS have remained stable.
--- NOTE | 2019-02-18 19:40 | NUR ---
Received report from DEONNA Becerra. Pt laying in bed, when awoken for assessment became agitated about his pain management. Pt stated that his medications were not managed well during the day. RN assured pt that together we would work on controlling the pain. Pt is satisfied with that answer. Pt has no other complaints at this time. Assessment completed, Vitals WNL. Call light and personal belongings within reach. No further concerns at this time.
--- NOTE | 2019-02-18 20:30 | NUR ---
Pt RR 6-7 during sleep, woke him and it slowly climbed back up to 13. Pt requesting pain medication. Talked with Maria, solar hot water installer, about giving pt a dose of oral Morphine because of respirations. RR currently 13, therefore able to give to pt. Explained to pt that the Morphine causes decreased respirations and can decrease it even further than the 6-7 when asleep. Pt understands, but would like the Morphine anyway. Morphine given, pt voices no other concerns at this time. Call light, SENIOR QUALITY ENGINEER remote within reach. No further concerns at this time.
--- NOTE | 2019-02-18 22:00 | NUR ---
Pt searching room for medications stating he thinks we're messing with him. Becoming increasingly confused.
[2019-02-19] VITALS (8 sets, daily range): BP systolic 103–144; BP diastolic 58–84; PULSE 69–85; TEMP 97.7–98.4
--- NOTE | 2019-02-19 01:30 | NUR ---
PT C/O CHEST PAIN, ADMINISTERED DOSE OF NITRO-STAT. BP 110/59. WILL CONTINUE TO MONITOR.
--- NOTE | 2019-02-19 01:35 | NUR ---
PT STILL HAVING CHEST PAIN. SECOND DOSE OF NITRO-STAT ADMINISTERED. PT LAID BACK IN BED AND IMMEDIATELY SCREAMED OUT IN PAIN. SAT PT UP, AT WHICH TIME THE PAIN IN THE UPPER RIGHT QUADRANT OF THE ABDOMEN BENEATH THE RIBS SUBSIDED. PT STATED, "THAT SCARED ME! I AM TIRED OF THIS EARTH AND THIS BODY." WILL CONTINUE TO MONITOR.
--- NOTE | 2019-02-19 01:42 | NUR ---
PT IS NO LONGER EXPERIENCING CHEST PAIN. LAYING IN BED WITH HOB AT 60 DEGREES. PT NOW WATCHING TV AND FALLING ASLEEP. NO FURTHER CONCERNS AT THIS TIME.
--- NOTE | 2019-02-19 02:03 | NUR ---
Pt RR 6-7 during sleep, woke him and it slowly climbed back up to 13. Pt requesting pain medication. Talked with Maria, flight purser, about giving pt a dose of oral Morphine because of respirations. RR currently 13, therefore able to give to pt. Explained to pt that the Morphine causes decreased respirations and can decrease it even further than the 6-7 when asleep. Pt understands, but would like the Morphine anyway. Morphine given, pt voices no other concerns at this time. Call light, TERMITE EXTERMINATOR HELPER remote within reach. No further concerns at this time.
--- NOTE | 2019-02-19 04:35 | NUR ---
Pt request home medication of Percocet. Dr. Travis contacted by DEONNA Sifuentes. Percocet ordered for 1 time dose.
--- NOTE | 2019-02-19 06:05 | NUR ---
Pt still a 10/10 pain. Oral Morphine given. Pt call light and DIESEL ENGINE MECHANIC APPRENTICE remote in reach. No further concerns at this time.
--- NOTE | 2019-02-19 07:43 | NUR ---
Report given to DEONNA Becerra. Informed Hernan of pt's unbearable pain 10/10 through the night. Discussed maintaining Q1H oral morphine to assisst in coming off the MOLASSES PREPARER to have the ability to transfer to Hospice on Wednesday.
--- NOTE | 2019-02-19 10:47 | NUR ---
Pt awake and alert, sitting on window side bench, shift assessments complete, left Pt call light in accessable.
--- NOTE | 2019-02-19 19:16 | NUR ---
Pt rested in room today, has C/O pain not being well controlled but declined oral roxanol when offered, VS have remained stable.
--- NOTE | 2019-02-19 19:26 | NUR ---
Report given to DEONNA Calhoun.
[2019-02-20] VITALS (7 sets, daily range): BP systolic 106–120; BP diastolic 61–78; PULSE 70–83; TEMP 98.2–98.4
--- NOTE | 2019-02-20 07:00 | NUR ---
Report rcvd from DEONNA Becerra. Pt had an unremarkable night. Maintained HOG SLAUGHTERER pump, and will leave to hospice house today on said HOG SLAUGHTERER pump. Pt still receiving Roxanol Q1H PRN. Pt pain remains 10/10 all the time. No further concerns. Report given to DEONNA Gr.
--- NOTE | 2019-02-20 08:30 | NUR ---
Pt drowsy but wakens to stimulation. Pt alert to person but confused to place and time. Pt has PICC in place and will be seen by [facility] today. Pt plans to discharge today to Hospice. Pt pain managed with AIR BATTLE MANAGER Morphine pump. Pt am assessment completed. Pt lungs very coarse throughout. Pt has left chest pleurex tube noted and CDI dressing.
--- NOTE | 2019-02-20 08:50 | NUR ---
Found patient standing up at the bedside, PICC intact with credit compliance officer no longer present. bleeding noted from lumen. caps channged and both ports flushed with 10ml normal saline. dressing change done with insertion site cleansed with chloraprep x 1, chlorhexidine impregnated disk, skin prep, stat lock, and tegaderm applied. no signs or symptoms of IV complications noted. no concerns voiced. re-wrapped with naveed to protect catheter. plan is for transfer to Hospice today.
[2019-02-20] MEDS ORDERED: BENADRYL25 M2 PO (08:59)
[2019-02-20] MEDS ORDERED: IPRATROPIUM BROM3 M1 IH (08:59)
[2019-02-20] MEDS ORDERED: COLACE 100100 MG/CAP PO (09:05)
[2019-02-20] MEDS ORDERED: ARTIFICIAL TEAR15 M7 OP (09:05)
[2019-02-20] MEDS ORDERED: ROXANOL 20MG20 MG/ML PO (09:07)
[2019-02-20] MEDS ORDERED: FENTANYL 75MCG TD (09:07)
[2019-02-20] MEDS ORDERED: MORPHINEPCA IV (09:18)
[2019-02-20] MEDS ORDERED: SENOKOT S 50 MG1 TAB PO (09:19)
[2019-02-20] MEDS ORDERED: MIRALAX510G PO (09:19)
[2019-02-20] MEDS ORDERED: MS CONTIN 330 MG/TAB PO (09:23)
--- NOTE | 2019-02-20 09:54 | NUR ---
MICHAEL collaborated with Palliative Care Nurse, Cleo. The patient was accepted at the [facility]osp[facility] and Dr. Zurita will follow the patient. The patient is to discharge today, 02/20, to the [facility]. Transportation was arranged for 1330, via [facility]. MICHAEL informed the patient and the patient's nurse. They were both in agreeance to the time. MICHAEL presented and explained the IM form to the patient. The patient verbalized understanding, signed, and he was provided a copy. MICHAEL also faxed the patient's scripts to [facility]. No additional needs at this time.
--- NOTE | 2019-02-20 10:42 | NUR ---
Follow-up visit; Kiran talked very little but held on to Art Professor's hand while she offered comfort and prayer.
--- NOTE | 2019-02-20 11:09 | NUR ---
Have spoken with both Ramon and Sonido at [facility]. Dr Zurita will follow pt at hospice house, LABEL TACKER is acceptable and orders will be sent. Anticipate discharge at 1330 by ambulance. I did speak with Dr Mooney who felt is would be best if pleurx was drained after he settled into the Hospice house and so I will send drainage bottle with him.
--- NOTE | 2019-02-20 14:45 | NUR ---
Pt given dose of Roxanol for pain management. MARKETING COORDINATOR disconnected as medication had all been infused and syringe empty. Pt transferring to [facility]ospice [facility] via EMS now. Pt has all belongings.
--- NOTE | 2019-02-20 15:09 | NUR ---
cALLED Hospice house to give report on pt and was asked to leave message for nurse Donna. Message left with return number for report.
--- NOTE | 2019-02-20 15:20 | NUR ---
pt report given to Solange YING at [facility].
== END 2019-02-20 14:45 | disposition hospice, inpatient (51) | DRG 180 ==
LOC: COL.ER 11:15 → ICU 15:52 → MEDICAL 02-16 10:21
PROVIDERS: Emergency Medicine; Physician Assistant; ADMIT Internal Medicine
PROC: 02HV33Z Insertion of Infusion Device into Superior Vena Cava, Percutaneous Approach (ICD-10-PCS; principal; 2019-02-15)
PROC: 0W9B30Z Drainage of Left Pleural Cavity with Drainage Device, Percutaneous Approach (ICD-10-PCS; 2019-02-15)
DX: C78.02 Secondary malignant neoplasm of left lung (principal); I21.4 Non-ST elevation (NSTEMI) myocardial infarction; J96.01 Acute respiratory failure with hypoxia; E43 Unspecified severe protein-calorie malnutrition; C25.9 Malignant neoplasm of pancreas, unspecified; C78.7 Secondary malignant neoplasm of liver and intrahepatic bile duct; I50.32 Chronic diastolic (congestive) heart failure; J91.0 Malignant pleural effusion; C78.01 Secondary malignant neoplasm of right lung; I25.10 Atherosclerotic heart disease of native coronary artery without angina pectoris; I48.91 Unspecified atrial fibrillation; E78.5 Hyperlipidemia, unspecified; I11.0 Hypertensive heart disease with heart failure; I08.3 Combined rheumatic disorders of mitral, aortic and tricuspid valves; G89.29 Other chronic pain; Z51.5 Encounter for palliative care; Z95.1 Presence of aortocoronary bypass graft; Z86.711 Personal history of pulmonary embolism; Z79.01 Long term (current) use of anticoagulants; Z95.2 Presence of prosthetic heart valve; I25.2 Old myocardial infarction; Z90.49 Acquired absence of other specified parts of digestive tract; Z95.0 Presence of cardiac pacemaker; Z79.891 Long term (current) use of opiate analgesic; Z79.4 Long term (current) use of insulin; Z87.891 Personal history of nicotine dependence; E83.42 Hypomagnesemia; D64.9 Anemia, unspecified; K59.00 Constipation, unspecified
CPT/HCPCS: 99223-AI; 99231-AI; 99233-AI; 99239; C1751; C1892; J1644; J1815; J2270; J2405; J2550; J3010; J3475; J3480; J7030; P9040

== ENCOUNTER 2019-02-25 07:50 | Emergency (ER) | payer MEDICARE, MEDICAID ==
[2006-05-04 12:29] VITALS: BP 123/72
[~2019-02-25] VITALS: Ht 180.3 cm; Wt 81.8 kg
[~2019-02-25 07:50] MED LIST changes: +ARTIFICIAL TEAR15 M7 OP; +BENADRYL25 M2 PO; +COLACE 100100 MG/CAP PO; +FENTANYL 75MCG TD; +IPRATROPIUM BROM3 M1 IH; +MIRALAX510G PO; +MORPHINEPCA IV; +ROXANOL 20MG20 MG/ML PO; +SENOKOT S 50 MG1 TAB PO
[2019-02-25 07:55] VITALS: TEMP 98.8
[2019-02-25] MEDS ORDERED: OMNICEF 300MG300 MG PO (08:51)
[2019-02-25 11:34] VITALS: BP 456/83; PULSE 70
== END 2019-02-25 11:37 | disposition home or self-care (01) ==
LOC: COL.ER 07:50
DX: J90 Pleural effusion, not elsewhere classified (principal); E78.5 Hyperlipidemia, unspecified; I11.0 Hypertensive heart disease with heart failure; I50.9 Heart failure, unspecified; I48.91 Unspecified atrial fibrillation; F17.210 Nicotine dependence, cigarettes, uncomplicated; Z45.2 Encounter for adjustment and management of vascular access device; Z85.07 Personal history of malignant neoplasm of pancreas; Z79.01 Long term (current) use of anticoagulants

== ENCOUNTER 2019-02-27 12:46 | Outpatient (RCR) | payer MEDICARE, MEDICAID ==
[2006-05-04 12:29] VITALS: BP 123/72
[~2019-02-27] VITALS: Ht 180.3 cm; Wt 88.0 kg
--- NOTE | 2019-02-27 14:00 | NUR ---
Pleurex drain to L chest accessed with sterile technique. 650 mL bloody fluid drained from pleurex. Pt reports pain when fluid removed. Pain relieved when draiage stopped. Pleurex capped with sterile cap and site dressed with sterile foam and gauze and covered with tegaderm. Pt states he is breathing better after pleurex drained.
[2019-02-27 14:24] VITALS: BP 164/79; PULSE 71; TEMP 98.1
--- NOTE | 2019-02-27 14:30 | NUR ---
here for cares. Patient discharged himself from hospice recently. According to patient, home health is no longer providing cares for his PICC. With sterile technique right upper arm PICC dressing change done with insertion site cleansed with ChloraPrep 1, chlorhexidine impregnated disc applied, skin prep, StatLock, and Tegaderm applied. Both ports flushed with 10 mL normal saline with good blood return noted. No signs or symptoms of IV complications noted. No concerns voiced. Express unit RN is making arrangements for home health. She has contacted patient's primary care physician for instructions.
== END 2019-02-27 15:01 | disposition home or self-care (01) ==
LOC: EUO 12:46
DX: Z45.2 Encounter for adjustment and management of vascular access device (principal)

== ENCOUNTER 2019-03-06 14:17 | Observation (INO) | payer MEDICARE, MEDICAID ==
[~2019-03-06] VITALS: Ht 180.3 cm; Wt 79.3 kg
[2019-03-06 15:14] LABS: BASO % 0.3 % (0.0-2.0); EOS % 0.3 % (0-4.0); GRAN # 8.3 (1.4-6.5); HEMOGLOBIN 9.7 g/dl (13.5-18.0); LYMPH # 2.1 (1.2-3.4); LYMPH % 18.1 % (20.0-51.0); MEAN CELL VOLUME 86 fl (80.0-100.0); MEAN CORPUSCULAR HEMOGLOBIN 28 pg (27.0-31.0); MEAN CORPUSCULAR HGB CONC 32 g/dl (33.0-37.0); MEAN PLATELET VOLUME 8.7 fl (7.4-10.4); MONO % 8.4 % (1.7-9.3); PLATELET COUNT 333 K/mm3 (130-400); REDCELL DISTRIBUTION WIDTH-CV 16.3 % (11.5-14.5)
[2019-03-06 15:19] LABS: INR 4.8 (0.8-3.0)
[2019-03-06 15:21] LABS: PARTIAL THROMBOPLASTIN TIME 42.3 SECONDS (26.0-37.0)
[2019-03-06 15:24] LABS: PROTHROMBIN TIME 59.5 SECONDS (9.7-12.8)
[2019-03-06 15:26] LABS: ALBUMIN 3.3 gm/dL (3.5-5.0); BILIRUBIN,TOTAL 0.9 mg/dL (0.0-1.0); CREATININE, serum 0.63 (0.66-1.25); MAGNESIUM 1.6 mg/dL (1.6-2.3); PHOSPHOROUS 1.9 mg/dL (2.5-4.5); POTASSIUM 3.2 mmol/L (3.4-5.0)
[2019-03-06 15:42] LABS: TROPONIN-I 0.062 ng/mL (0.000-0.035)
[2019-03-06 16:14] LABS: COLLECTION METHOD CLEAN CATCH
[2019-03-06 16:20] LABS: MUCOUS Present /lpf; PH 7 (5-8); SQUAMOUS EPITHELIAL 0-2 /hpf; URINE APPEARANCE Hazy; URINE BACTERIA Rare /hpf; URINE BILIRUBIN Negative (NEGATIVE); URINE BLOOD Negative (NEGATIVE); URINE COLOR Yellow; URINE GLUCOSE 2+ (NEGATIVE); URINE KETONE 1+ (NEGATIVE); URINE LEUKOCYTE ESTERASE Negative (NEGATIVE); URINE NITRATE Negative (NEGATIVE); URINE PROTEIN(semi-quant) 1+ (NEGATIVE); URINE RBC 0-2 /hpf; URINE UROBILINOGEN Negative (NEGATIVE); URINE WBC 0-2 /hpf
[2019-03-06 20:24] VITALS: BP 136/75; PULSE 73; TEMP 98.4
--- NOTE | 2019-03-06 21:00 | NUR ---
Admitted to medical floor from ER- Dx; pain control, on comfort care- has Pancreatic CA w/mets. Alert/oriented x3, states abd pain 01/26- will give meds as ordered- requesting his Oxycodone-was not ordered,, will call Donna ERNANDEZ regarding his Oxycodone. Did get an additional 25mcg Fentanyl to left arm per order for total of 75MCG, {Had 50mcg that was just new today around 2 pm, put on by home health nurse-hospice} Has left plueral tube to chest- all covered/ dry, clean dressing-dated today-- was drained around noon per home nurse-hospice.. DALIA PICC line- caps changed at this time dressing was changed today by home nurse- signed/dated. Pt states would like popsicle-
[2019-03-06] MEDS ORDERED: DAZIDOX10 MG PO (22:13)
[2019-03-07 02:58] VITALS: BP 124/68; PULSE 100; TEMP 98.9
--- NOTE | 2019-03-07 02:58 | NUR ---
Pt states having chest pain 01/26- vitals taken- WNL,, page in to Donna ERNANDEZ for SL nitro- pt states he takes that at home,,will give 2mg Morphine IV at this time.
--- NOTE | 2019-03-07 03:11 | NUR ---
States chest pain still 11/26- 1 nitro given at this time ,,
--- NOTE | 2019-03-07 03:21 | NUR ---
states chest pain 08/26- B/P 123/70-- will give another nitro tab S.L at this time. States pain not as constant- more intermittant at this time
--- NOTE | 2019-03-07 03:35 | NUR ---
B/P 123/65, chest pain 07/27- will give the third Nitro as ordered. Pt sitting up in bed- pt states the chest pain woke him up - he had been sleeping for about 4 hour
--- NOTE | 2019-03-07 03:40 | NUR ---
States chest pain is better- will try to rest, B/P 118/58
--- NOTE | 2019-03-07 06:00 | NUR ---
Has been resting fair- will give oxycodone for abd pain at this time- requesting a resp treatment for 'chest tightness" denies chest pain.
[2019-03-07 07:22] VITALS: BP 115/71; PULSE 84; TEMP 98.7
--- NOTE | 2019-03-07 09:07 | NUR ---
Initial visit; Patient thanked Internet Database Specialist for looking in on him, listening and offering God's blessings.
--- NOTE | 2019-03-07 09:20 | NUR ---
Pt admitted with PICC. PICC intact right upper arm with no disk present. with sterile technique right upper arm PICC dressing change done with insertion site cleansed with chlorhexidine 1, chlorhexidine impregnated disc applied, skin prep, StatLock, and Tegaderm applied. No signs or symptoms of IV complications noted. No concerns voiced. Arm wrapped with Sudhakar to protect catheter.
--- NOTE | 2019-03-07 14:57 | NUR ---
Pt standing at the door of his room, stating he needed his nurse to bring his medicine to make him have a bowel movement. Spoke with Sara, his nurse, who reports that he refused it this morning. Brought miralax to his bedside for him and he put it in his milkshake to help with the taste of the medicine. He then requested some ice and when I returned he had drank over half of his shake. He seems to be ready to go to [facility] for his care and reports that FRANCI Yang, will drive him there in his car. At this point he seems very happy with this plan. Support provided.
--- NOTE | 2019-03-07 15:39 | NUR ---
Preventive Maintenance Engineer attended clinical rounds with the team and patient stated he would like to go to [facility] in [place]. SW met with patient, who is a readmit. Patient was admitted to hospital at [facility] from 02/15/19-02/20/19. Patient was discharged to [facility] at that time. Patient reports he did not like it there and felt he could not come and go as he pleased so he left there to go home. Patient presented to the Emergency Room on 03/06/19 and was admitted to Medical Floor. Patient's primary care is Dr. Piedra. Patient utilizes a cane for mobility. SW presented Medicare.gov list of prison facilities and patient choice form. SW explained choice form and patient provided signature, stating he wants [facility] in [place]. MICHAEL faxed referral and left message for Linn, after school coordinator. MICHAEL Martinez from [facility] met briefly with MICHAEL and advised she would provide patient with transportation to [facility] upon discharge. MICHAEL to continue to follow.
--- NOTE | 2019-03-07 19:12 | NUR ---
Patient is eating supper, resting in bed. Denies needs, call light and personal items are within reach.
--- NOTE | 2019-03-08 09:30 | NUR ---
Patient is sitting up on side of bed, is requesting to walk independently in hallways. Was told that he needed to have stand by assist during ambulation and was not pleased. Was also asked if he could wait a little bit and he was not pleased with this either. This request was at 0730, patient was assisted on walk at 0815. Did tell staff they were pulling him around with the gait belt as they walked and asked that they not hold onto the belt. Staff educated patient that it was for safety and he continued to decline for staff to hold belt.
--- NOTE | 2019-03-08 16:51 | NUR ---
Photograph Finisher was notified by Linn at [facility] that they could accept patient, but needed referral sent to [facility]. MICHAEL faxed referral and spoke to [facility] who advised they could accept referral. MICHAEL then contacted Linn who advised she needed to directly communicate with [facility] about acceptance. MICHAEL contacted [facility] who advised they would contact Linn.
--- NOTE | 2019-03-08 16:55 | NUR ---
Portfolio Manager was notified by Linn at [facility] that due to time in day, they would not be able to accept today, but could likely tomorrow. MICHAEL provided update to patient and patient's informal advocate, Celia from [facility] who agreed to provide transportation to [facility]. Patient states he is going home tonight and Michelle will provide this transportation. MICHAEL spoke with Celia who stated she will not provide patient transportation home tonight. When MICHAEL met with patient, he stated his daughter will pick him up and he is going home tonight and will go to [facility] tomorrow. MICHAEL, MICHAEL Khan, and hospitalist met with patient and explained leaving tonight could affect [facility] accepting tomorrow. Patient states "I don't care" and reports he is leaving. MICHAEL made report to [facility] Services (intake #[id number]) due to patient leaving AMA.
--- NOTE | 2019-03-08 17:00 | NUR ---
Jewel Waxer was notified by patient that his daughter can not pick him up and he needs a taxi voucher. SW explained taxi voucher could not be given if leaving AMA. Patient gathered his belongings and left medical floor.
--- NOTE | 2019-03-08 17:01 | NUR ---
Irrigation Laborer spoke with Eliza from [facility] about patient whereabouts. MICHAEL was advised by MICHAEL Purvis that Hospitalist requested taxi voucher for patient. MICHAEL Purvis set up taxi ride for patient. MIHCAEL left Eliza a message to update. MICHAEL provided update to Linn alvarez Oelrichs who advised she will contact patient tomorrow.
--- NOTE | 2019-03-08 17:55 | NUR ---
Patient sitting on side of bed dressed with personal items packed at 1500. Took in AMA paperwork as Dr. Rodriguez discussed this with patient. He declined to sign paperwork as he stated "its not right." I told him he had the right. He stated he was sitting and waiting on his daughter to pick him up. I did ask that he notify staff so we could assist him to the car. At 1630 he was observed walking to the elevators and went to visitor desk for assistance in calling a cab. He stated he could not afford the prices and stated he would walk to [place]. Dr. Rodriguez was notified of this and staff was instructed to obtain a voucher for the patient to get home. relocation services specialist called and notfied them of this and that patient was sitting at the visitors enterance.
--- NOTE | 2019-03-09 15:08 | NUR ---
Linn with [facility] states they will not accept patient as he left Hospice and this hospital AMA.
--- NOTE | 2019-03-09 15:51 | NUR ---
Celia with [facility] states they are accepting patient to home health and receiving orders from Dr Zurita. Home health will care for patient's PICC line and denvery pleuryx drains. Bhaviki states that Adult protective services will check on patient daily and neice/family have committed to caring for patient at home.
== END 2019-03-08 16:30 | disposition home or self-care (01) ==
LOC: COL.ER 14:17 → MEDICAL 16:15
PROVIDERS: Emergency Medicine; ADMIT Internal Medicine
DX: G89.4 Chronic pain syndrome (principal); C25.9 Malignant neoplasm of pancreas, unspecified; E78.5 Hyperlipidemia, unspecified; I25.10 Atherosclerotic heart disease of native coronary artery without angina pectoris; I48.91 Unspecified atrial fibrillation; I11.0 Hypertensive heart disease with heart failure; I50.22 Chronic systolic (congestive) heart failure; C78.00 Secondary malignant neoplasm of unspecified lung; C78.7 Secondary malignant neoplasm of liver and intrahepatic bile duct; Z95.1 Presence of aortocoronary bypass graft; Z79.01 Long term (current) use of anticoagulants; Z95.2 Presence of prosthetic heart valve; Z86.711 Personal history of pulmonary embolism; Z87.891 Personal history of nicotine dependence
CPT/HCPCS: C9113; G0378; J2270; J2550; J3010